=== PATIENT | male | born 1995 | race Hispanic/Latino ===

== ENCOUNTER 2018-03-03 19:25 | Emergency (ER) | payer MEDICAID, SELFPAY ==
[2018-03-03 20:11] LABS: Urine Bacteria <20 /HPF (NONE SEEN); Urine Culture Reflex Order REFLEXED
[2018-03-03 20:25] LABS: Absolute Lymphocytes (CBC) 1.4 K/uL (0.7-4.9); Absolute Monocytes 1.5 K/uL (0.1-1.3); Absolute Neutrophil 13.7 K/uL (1.8-8.0); Basophils % 0.5 % (0-1.3); Eosinophils % 0.8 % (0-4.4); Lymphocytes % 8.4 % (15.3-44.8); MCH 28.7 pg (27.0-35.0); MCV 84.3 fL (80-100); MPV 7.8 fL (7.6-11.3); Monocytes % 8.8 % (3.3-12.3); RBC Red Blood Cell Count 5.22 M/uL (4.33-5.43)
[2018-03-03 20:31] LABS: Urine Blood 2+ (NEG); Urine Glucose NEGATIVE (NEG); Urine Protein 2+ (NEG)
[2018-03-03 20:45] LABS: Albumin 3.8 g/dL (3.4-5.0); Bilirubin Direct 0.2 mg/dL (0-0.2); Bilirubin Total 0.5 mg/dL (0.2-1.0); Potassium 3.8 mmol/L (3.5-5.1); Protein, Total 7.9 g/dL (6.4-8.2)
--- NOTE | 2018-03-03 21:03 | RAD REPORT ---
EXAM DESCRIPTION: CT - Stone Protocol - 03/03/2018 8:21 pm CLINICAL HISTORY: Abdominal pain. Lower abdominal pain. Urinary frequency COMPARISON: None. TECHNIQUE: Computed axial tomography of the abdomen pelvis was obtained without oral or IV contrast. Lack of IV and oral contrast limits evaluation of solid organs, bowel, and vessels. Coronal reformat jordan images were obtained and reviewed. All CT scans are performed using dose optimization technique as appropriate and may include automated exposure control or mA/KV adjustment according to patient size. FINDINGS: A renal calculus is not seen. An ureteral calculus is not noted. A bladder calculus is not present. Fatty infiltration liver is present. Spleen, pancreas and adrenals appear grossly normal There is no evidence of diverticulitis. The spinal canal appears congenitally small. Small inguinal hernias containing fat are suspected IMPRESSION: Negative for a genitourinary calculus The spinal canal appears congenitally small. Further evaluation with MRI may be helpful
[2018-03-03] MEDS ORDERED: HYDROCODONE/APAP 7.5/325 MG TAB ONE (21:17)
[2018-03-03] MEDS ORDERED: NA CHLORIDE 0.9% 1,000 ML ONE ×2 (21:17→21:34)
[2018-03-03 23:50] LABS: Potassium 4.2 mmol/L (3.5-5.1)
--- NOTE | 2018-03-04 00:30 | ER ---
Nurse's Notes [facility] Name: Riki Amado Age: 22 yrs Sex: Male : 1995 Arrival Date: 03/03/2018 Time: 19:28 Bed 14 Private MD: Diagnosis: Essential (primary) hypertension Presentation: 03/03 19:33 Presenting complaint: Patient states: that he is having lower back pain and lower abd fc pain. Also having urinary frequency but no burning. Started 2 days ago. Positive for nausea and constipation but denies any vomiting or diarrhea. Last bowel movement 5 days ago. Went to [facility] on Friday and was told he had a pinched nerve in his back and gave him Tylenol #3, Gabapentin and Etodolac. Transition of care: patient was not received from another setting of care. Onset of symptoms was March 01, 2018. Risk Assessment: Do you want to hurt yourself or someone else? Patient reports no desire to harm self or others. Initial Sepsis Screen: Does the patient meet any 2 criteria? No. Patient's initial sepsis screen is negative. Does the patient have a suspected source of infection? No. Patient's initial sepsis screen is negative. Care prior to arrival: None. 19:33 Method Of Arrival: Ambulatory fc 19:33 Acuity: DION 3 fc Triage Assessment: 19:45 General: Appears in no apparent distress. Behavior is calm, cooperative. Pain: ak1 Complains of pain in lower back. EENT: No signs and/or symptoms were reported regarding the EENT system. Neuro: No deficits noted. Cardiovascular: No deficits noted. Respiratory: No deficits noted. GI: Reports constipation, nausea, Patient currently denies vomiting. : Reports urinary frequency, Denies burning with urination. Derm: No signs and/or symptoms reported regarding the dermatologic system. Musculoskeletal: Reports pain in lower back. Historical: - Allergies: 19:38 No Known Allergies; fc - Home Meds: 19:38 None [Active]; fc - PMHx: 19:38 Hypertension; fc - PSHx: 19:38 Appendectomy; fc - Immunization history:: Last tetanus immunization: unknown. - Social history:: Smoking status: Patient/guardian denies using tobacco, Patient uses alcohol, occasionally. Patient/guardian denies using street drugs. - Ebola Screening: : Patient negative for fever greater than or equal to 101.5 degrees Fahrenheit, and additional compatible Ebola Virus Disease symptoms Patient denies exposure to infectious person Patient denies travel to an Ebola-affected area in the 21 days before illness onset. Screenin:44 Abuse screen: Denies threats or abuse. Denies injuries from another. Nutritional ak1 screening: No deficits noted. Tuberculosis screening: No symptoms or risk factors identified. Fall Risk None identified. Assessment: 19:46 Reassessment: Patient appears in no apparent distress at this time. No changes from ak1 previously documented assessment. see triage assessment. 21:34 Reassessment: Patient appears in no apparent distress at this time. No changes from ak1 previously documented assessment. Patient and/or family updated on plan of care and expected duration. Pain level reassessed. Patient is alert, oriented x 3, equal unlabored respirations, skin warm/dry/pink. pt and family informed of need to wait for fluid boluses and repeat lab work. Vital Signs: 19:38 BP 158 / 108; Pulse 70; Resp 20; Temp 98.2(O); Pulse Ox 96% on R/A; Weight 147.42 kg fc (R); Height 6 ft. 3 in. (190.50 cm) (R); Pain 7/10; 21:06 BP 152 / 107; Pulse 72; Resp 18; Temp 98.2; Pulse Ox 98% on R/A; Pain 6/10; ak1 19:38 Body Mass Index 40.62 (147.42 kg, 190.50 cm) ED Course: 19:28 Patient arrived in ED. ds1 19:37 Triage completed. fc 19:41 Gino Jeffries PA is PHCP. cp 19:41 Trevor Qiu MD is Attending Physician. cp 19:44 Sara Turner, JAVIER is Primary Nurse. ak1 19:46 Arm band placed on Patient placed in an exam room, on a stretcher, Patient notified of ak1 wait time. 19:47 Patient has correct armband on for positive identification. Placed in gown. Bed in low ak1 position. Call light in reach. Side rails up X2. 20:14 Inserted saline lock: 20 gauge in right antecubital area, using aseptic technique. mt Blood collected. 20:[address] jg6 20:21 CT Stone Protocol In Process Unspecified. EDMS 20:21 CT completed. Patient tolerated procedure well. Patient moved back from CT. nj 20:59 No provider procedures requiring assistance completed. ak1 21:30 PHCP role handed off by Gino Jeffries PA snw 21:30 Tonya Culp FNP-C is PHCP. snw 22:31 Door closed. Warm blanket given. ak1 23:09 Chem 7 Sent. ak1 03/04 00:46 IV discontinued, intact, bleeding controlled, No redness/swelling at site. Pressure ak1 dressing applied. Administered Medications: 03/03 21:16 Drug: NS 0.9% 1000 ml Route: IV; Rate: 1 bolus; Site: right antecubital; ak1 22:31 Follow up: IV Status: Completed infusion ak1 21:16 Drug: [place] (7.5 mg-325 mg) 1 tabs Route: PO; ak1 21:25 Follow up: Response: No adverse reaction ak1 21:31 Drug: NS 0.9% 1000 ml Route: IV; Rate: 1 bolus; Site: right antecubital; ak1 23:09 Follow up: IV Status: Completed infusion ak1 03/04 00:39 Drug: Norvasc 5 mg Route: PO; ak1 00:40 Follow up: Response: No adverse reaction ak1 00:45 Drug: [place] (7.5 mg-325 mg) 1 tabs Route: PO; ak1 00:45 Follow up: Response: Medication administered at discharge. ak1 Outcome: 03/03 22:46 Condition: stable ak1 03/04 00:30 Discharge ordered by MD. snw 00:46 Discharged to home ambulatory, with family. ak1 00:46 Discharge instructions given to patient, family, Instructed on discharge instructions, follow up and referral plans. medication usage, Demonstrated understanding of instructions, follow-up care, medications, Prescriptions given X 1. 00:46 Patient left the ED. ak1 Signatures: Dispatcher [employer] EDMS Tonya Culp FNP-C FNP-Natalie Cuadra RN RN fc Sanford, Demi ds1 Sara Turner RN RN ak1 Gino Jeffries PA PA cp Jordan, Nathan nj Thompson, Moriah mt Garcia, Jessica jStephen
--- NOTE | 2018-03-04 00:31 | EDPHYS ---
Physician Documentation [facility] Name: Riki Amado Age: 22 yrs Sex: Male : 1995 Arrival Date: 03/03/2018 Time: 19:28 Bed 14 Private MD: ED Physician Trevor Qiu HPI: 03/03 19:58 This 22 yrs old Male presents to ER via Ambulatory with complaints of Kidney cp Pain, Urinary Retention. 19:58 The patient presents with abdominal pain in the lower abdomen. Onset: The cp symptoms/episode began/occurred 2 day(s) ago. Associated signs and symptoms: Pertinent positives: constipation, nausea, mid back pain, Pertinent negatives: blood in stools, diarrhea, dysuria, fever, vomiting. Historical: - Allergies: 19:38 No Known Allergies; fc - Home Meds: 19:38 None [Active]; fc - PMHx: 19:38 Hypertension; fc - PSHx: 19:38 Appendectomy; fc - Immunization history:: Last tetanus immunization: unknown. - Social history:: Smoking status: Patient/guardian denies using tobacco, Patient uses alcohol, occasionally. Patient/guardian denies using street drugs. - Ebola Screening: : Patient negative for fever greater than or equal to 101.5 degrees Fahrenheit, and additional compatible Ebola Virus Disease symptoms Patient denies exposure to infectious person Patient denies travel to an Ebola-affected area in the 21 days before illness onset. ROS: 20:00 Eyes: Negative for injury, pain, redness, and discharge. cp 20:00 Constitutional: Negative for body aches, chills, fever, poor PO intake. Exam: 20:08 Constitutional: The patient appears in no acute distress, alert, awake, non-toxic, well cp developed, well nourished. 20:08 Head/Face: Normocephalic, atraumatic. cp 20:08 Eyes: Periorbital structures: appear normal, Conjunctiva: normal, no exudate, no injection, Sclera: no appreciated abnormality, Lids and lashes: appear normal, bilaterally. 20:08 ENT: External ear(s): are unremarkable, Nose: is normal, Mouth: Lips: moist, Oral mucosa: moist, Posterior pharynx: is normal, airway is patent, no erythema, no exudate. 20:08 Chest/axilla: Inspection: normal, Palpation: is normal, no crepitus, no tenderness. 20:08 Cardiovascular: Rate: normal, Rhythm: regular, Edema: is not appreciated, JVD: is not appreciated. 20:08 Respiratory: the patient does not display signs of respiratory distress, Respirations: normal, no use of accessory muscles, no retractions, no splinting, no tachypnea, labored breathing, is not present, Breath sounds: are clear throughout, no decreased breath sounds, no stridor, no wheezing. 20:08 Abdomen/GI: Inspection: obese Bowel sounds: active, all quadrants, Palpation: soft, in all quadrants, mild abdominal tenderness, in the right lower quadrant and left lower quadrant, rebound tenderness, is not appreciated, involuntary guarding, is not appreciated. 20:08 Back: pain, that is mild, of the mid back area, ROM is normal, Straight leg raises: of both lower extremities does not illicit pain. 20:08 Skin: cellulitis, is not appreciated, no rash present. Vital Signs: 19:38 BP 158 / 108; Pulse 70; Resp 20; Temp 98.2(O); Pulse Ox 96% on R/A; Weight 147.42 kg fc (R); Height 6 ft. 3 in. (190.50 cm) (R); Pain 7/10; 21:06 BP 152 / 107; Pulse 72; Resp 18; Temp 98.2; Pulse Ox 98% on R/A; Pain 6/10; ak1 19:38 Body Mass Index 40.62 (147.42 kg, 190.50 cm) MDM: 19:41 Patient medically screened. 03/04 00:32 Data reviewed: vital signs, nurses notes. Data interpreted: Pulse oximetry: on room air snw is 98 %. Interpretation: normal. Counseling: I had a detailed discussion with the patient and/or guardian regarding: the historical points, exam findings, and any diagnostic results supporting the discharge/admit diagnosis, the presence of at least one elevated blood pressure reading (>120/80) during this emergency department visit, lab results, radiology results, the need for outpatient follow up, to return to the emergency department if symptoms worsen or persist or if there are any questions or concerns that arise at home. Special discussion: Based on the patient's Hx, exam, and Dx evaluation, there is no indication for emergent surgery or inpatient Tx. It is understood by the patient/guardian that if the Sx's persist or worsen they need to return immediately for re-evaluation. I have referred the patient to see his PCP for further evaluation of high blood pressure. Based on the history and exam findings, there is no indication for further emergent testing or inpatient evaluation. I discussed with the patient/guardian the need to see the primary care provider for further evaluation of the symptoms. 03/03 19:30 Order name: Urine Microscopic Only; Complete Time: 20:12 snw 03/03 20:12 Interpretation: Normal except: UWBC 5-10; URBC 5-10. cp 03/03 19:51 Order name: Urine Dipstick--Ancillary (enter results); Complete Time: 21:08 ms 03/03 21:08 Interpretation: Normal except: UBLD 2+; UPROT 2+. cp 03/03 19:57 Order name: Amylase, Serum; Complete Time: 21:08 cp 03/03 19:57 Order name: Basic Metabolic Panel; Complete Time: 21:08 cp 03/03 19:57 Order name: CBC with Diff; Complete Time: 21:08 cp 03/03 19:57 Order name: Creatinine for Radiology; Complete Time: 21:08 cp 03/03 19:57 Order name: Hepatic Function; Complete Time: 21:08 cp 03/03 19:57 Order name: Lipase; Complete Time: 21:08 cp 03/03 20:12 Order name: Urine Culture EDOH 03/03 20:13 Order name: CT Stone Protocol; Complete Time: 21:08 cp 03/03 22:40 Order name: Chem 7; Complete Time: 23:54 snw 03/03 19:30 Order name: Urine Dipstick-Ancillary (obtain specimen); Complete Time: 19:50 snw 03/03 19:57 Order name: IV Saline Lock; Complete Time: 20:14 cp 03/03 19:57 Order name: Labs collected and sent; Complete Time: 20:14 cp Administered Medications: 03/03 21:16 Drug: NS 0.9% 1000 ml Route: IV; Rate: 1 bolus; Site: right antecubital; ak1 22:31 Follow up: IV Status: Completed infusion ak1 21:16 Drug: [place] (7.5 mg-325 mg) 1 tabs Route: PO; ak1 21:25 Follow up: Response: No adverse reaction ak1 21:31 Drug: NS 0.9% 1000 ml Route: IV; Rate: 1 bolus; Site: right antecubital; ak1 23:09 Follow up: IV Status: Completed infusion ak1 03/04 00:39 Drug: Norvasc 5 mg Route: PO; ak1 00:40 Follow up: Response: No adverse reaction ak1 00:45 Drug: [place] (7.5 mg-325 mg) 1 tabs Route: PO; ak1 00:45 Follow up: Response: Medication administered at discharge. ak1 Disposition: 04:20 Co-signature as Attending Physician, Trevor Qiu MD. [email or web address] Disposition: 03/04/18 00:30 Discharged to Home. Impression: Essential (primary) hypertension. - Condition is Stable. - Discharge Instructions: Hypertension, How to Take Your Blood Pressure, Aeul-[id number], Chronic Kidney Disease, Adult, DASH Eating Plan, Managing Your Hypertension. - Prescriptions for Norvasc 5 mg Oral Tablet - take 1 tablet by ORAL route once daily; 20 tablet. - Work release form, Medication Reconciliation Form, Thank You Letter, Antibiotic Education, Prescription Opioid Use form. - Follow up: Private Physician; When: 2 - 3 days; Reason: Recheck today's complaints, Continuance of care, Re-evaluation by your physician. Follow up: Emergency Department; When: As needed; Reason: Worsening of condition. Signatures: Dispatcher [employer] EDMS Trevor Qiu MD MD pkTonya Nielson, JENS-C WARD SUPERVISOR-Lindseyw Natalie Abbott RN RN fc Krenek, Amber, RN RN ak1 Gino Jeffries PA PA cp Corrections: (The following items were deleted from the chart) 03/03 21:03/02 20:10 Constitutional: The patient appears in no acute distress, alert, awake, cp non-diaphoretic, non-toxic, well developed, well nourished, obese, cp 03/03 21:03/02 20:10 Head/Face: Normocephalic, atraumatic. cp cp 03/03 21:03/02 20:10 Eyes: Periorbital structures: appear normal, Conjunctiva: normal, no cp exudate, no injection, Sclera: no appreciated abnormality, Lids and lashes: appear normal, bilaterally, cp 03/03 21:03/02 20:10 ENT: External ear(s): are unremarkable, Nose: is normal, Mouth: Lips: cp moist, Oral mucosa: pink and intact, moist, Posterior pharynx: Airway: no evidence of obstruction, patent, Voice: is normal, cp 03/03 21:03/02 20:10 Neck: ROM/movement: is normal, is supple, without pain, no range of motions cp limitations, no nuchal rigidity, cp 03/03 21:03/02 20:10 Chest/axilla: Inspection: normal, Palpation: is normal, no crepitus, no cp tenderness, cp 03/03 21:03/02 20:10 Cardiovascular: Rate: normal, Rhythm: regular, cp cp 03/03 21:03/02 20:10 Respiratory: the patient does not display signs of respiratory distress, cp Respirations: normal, no use of accessory muscles, no retractions, no splinting, no tachypnea, labored breathing, is not present, Breath sounds: are clear throughout, no decreased breath sounds, no stridor, no wheezing, cp 03/03 21:03/02 20:10 Abdomen/GI: Inspection: obese Bowel sounds: active, all quadrants, cp Palpation: soft, in all quadrants, mild abdominal tenderness, in the right lower quadrant and left lower quadrant, rebound tenderness, is not appreciated, involuntary guarding, is not appreciated, cp 03/03 21:03/02 20:10 Back: pain, that is mild, of the mid back area, ROM is normal, Straight leg cp raises: of both lower extremities does not illicit pain, cp 03/03 21:03/02 20:10 Skin: cellulitis, is not appreciated, no rash present. cp cp 03/03 21:03/02 20:10 Neuro: Orientation: to person, place \T\ time. Mentation: lucid, able to cp follow commands, Motor: moves all fours, strength is normal, cp 03/04 00:46 00:30 03/04/2018 00:30 Discharged to Home. Impression: Essential (primary) ak1 hypertension. Condition is Stable. Forms are Medication Reconciliation Form, Thank You Letter, Antibiotic Education, Prescription Opioid Use. Follow up: Private Physician; When: 2 - 3 days; Reason: Recheck today's complaints, Continuance of care, Re-evaluation by your physician. Follow up: Emergency Department; When: As needed; Reason: Worsening of condition. marcelino
[2018-03-04] MEDS ORDERED: AMLODIPINE 5 MG TAB ONE (00:39)
[2018-03-04] MEDS ORDERED: HYDROCODONE/APAP 7.5/325 MG TAB ONE (00:48)
[2018-03-04 00:51] VITALS: TEMP 98.2
[2018-03-04 00:53] VITALS: BP 152/107; O2SAT 98
== END 2018-03-04 00:46 | disposition home or self-care (01) ==
LOC: ER 19:25
DX: I10 Essential (primary) hypertension (principal)
CPT/HCPCS: 36415; 74176; 76377; 80048; 80076; 81003; 81015; 82150; 83690; 85025; 87086; 87088; 96360; 96361; 99284; J7030

== ENCOUNTER 2018-06-16 23:34 | Emergency (ER) | payer SELFPAY ==
--- OUTSIDE RECORDS SUMMARY | 2018-06-16 23:36 | XMS REPORT ---
:1995 Author Organization [employer] Care Team Providers Name Role Phone Brunilda Laird Provider Role Unavailable Allergies, Adverse Reactions, Alerts Substance Reaction Event Type N.K.D.A. Info Not Available Non Drug Allergy Problems Problem Type Condition Code Onset Dates Condition Status Problem Stage 3 chronic kidney disease N18.3 Active Problem Essential hypertension I10 Active Assessment Essential hypertension I10 Active Assessment Stage 3 chronic kidney disease N18.3 Active Medications Medication Code Code Instructions Start End Status Dosage System Date Date Doxazosin [facility] [address]-07 2 MG Orally Active 1 tablet Mesylate twice a day Metoprolol [facility] 70268480892 25 MG Orally Active 1 tablet Tartrate every 12 hrs with food Gabapentin [facility] [address]-77 300 MG Orally Active 1 capsule Twice a day Melatonin [facility] 01285522742 3 MG Orally Active 1 tablet Once a day at bedtime as needed with food Tylenol # 3 NDC 0 300/30mg PO BID Active one tab PRN Amlodipine [facility] 74799076104 10 MG Orally Active 1 tablet Besylate Once a day Results No Known Results Summary Purpose [employer] Submission
[2018-06-17] MEDS ORDERED: NA CHLORIDE 0.9% 1,000 ML ONE (00:38)
[2018-06-17 01:00] LABS: Urine Blood NEGATIVE (NEG); Urine Glucose NEGATIVE (NEG); Urine Protein NEGATIVE (NEG); Urine Specific Gravity 1.015 (1.005-1.030)
[2018-06-17 01:00] LABS: Absolute Lymphocytes (CBC) 2.2 K/uL (0.7-4.9); Absolute Monocytes 0.7 K/uL (0.1-1.3); Absolute Neutrophil 6.4 K/uL (1.8-8.0); Basophils % 0.9 % (0-1.3); Eosinophils % 2.4 % (0-4.4); Hematocrit 45.5 % (39.6-49.0); Lymphocytes % 22.5 % (15.3-44.8); MPV 8.3 fL (7.6-11.3); Monocytes % 7.2 % (3.3-12.3); RBC Red Blood Cell Count 5.41 M/uL (4.33-5.43)
[2018-06-17 01:04] LABS: Urine RBC NONE SEEN /HPF (NONE SEEN)
[2018-06-17 01:05] LABS: Urine Bacteria <20 /HPF (NONE SEEN); Urine Culture Reflex Order NOT NEEDED
[2018-06-17 01:14] LABS: BUN Blood Urea Nitrogen 11 mg/dL (7-18); Bicarbonate 28 mmol/L (21-32); Glucose Level 85 mg/dL (74-106); Potassium 4.1 mmol/L (3.5-5.1); Sodium Level 137 mmol/L (136-145)
--- NOTE | 2018-06-17 02:17 | ER ---
Nurse's Notes [facility] Name: Riki Amado Age: 22 yrs Sex: Male : 1995 Arrival Date: 06/16/2018 Time: 23:38 Bed 19 Private MD: Diagnosis: Pain left lower back Presentation: 06/16 23:50 Presenting complaint: Patient states: L low back pain x 4 days. Reports the last time aa1 he felt this pain he was in renal failure from not taking his BP medication. Transition of care: patient was not received from another setting of care. Onset of symptoms was June 12, 2018. Risk Assessment: Do you want to hurt yourself or someone else? Patient reports no desire to harm self or others. Initial Sepsis Screen: Does the patient meet any 2 criteria? No. Patient's initial sepsis screen is negative. Does the patient have a suspected source of infection? No. Patient's initial sepsis screen is negative. Care prior to arrival: None. 23:50 Method Of Arrival: Ambulatory aa1 23:50 Acuity: DION 3 aa1 Triage Assessment: 23:53 General: Appears in no apparent distress. comfortable, Behavior is calm, cooperative, aa1 appropriate for age. Historical: - Allergies: 23:53 No Known Allergies; aa1 - Home Meds: 23:53 melatonin 3 mg Oral tab nightly [Active]; doxazosin 2 mg oral tab 1 tab twice a day aa1 [Active]; metoprolol tartrate 25 mg Oral tab 1 tab 2 times per day [Active]; - PMHx: 23:53 Hypertension; renal failure; aa1 - PSHx: 23:53 Appendectomy; aa1 - Immunization history:: Flu vaccine is not up to date. - Social history:: Smoking status: Patient/guardian denies using tobacco. - Ebola Screening: : No symptoms or risks identified at this time. Screenin/26 00:01 Abuse screen: Denies threats or abuse. Nutritional screening: No deficits noted. ea Tuberculosis screening: No symptoms or risk factors identified. Fall Risk None identified. Assessment: 00:00 General: Appears in no apparent distress. Behavior is calm, cooperative, appropriate ea for age. Pain: Complains of pain in left mid back and right mid back Pain does not radiate. Pain currently is 9 out of 10 on a pain scale. Neuro: Level of Consciousness is awake, alert, obeys commands, Oriented to person, place, time, situation. Cardiovascular: Patient's skin is warm and dry. Respiratory: Airway is patent Respiratory effort is even, unlabored, Respiratory pattern is regular, symmetrical, Breath sounds are clear. GI: No signs and/or symptoms were reported involving the gastrointestinal system. : No signs and/or symptoms were reported regarding the genitourinary system. Derm: Skin is pink, warm \T\ dry. 01:13 Reassessment: Patient and/or family updated on plan of care and expected duration. Pain ea level reassessed. Patient is alert, oriented x 3, equal unlabored respirations, skin warm/dry/pink. Returned from CT. 02:26 Reassessment: Patient and/or family updated on plan of care and expected duration. Pain ea level reassessed. Patient is alert, oriented x 3, equal unlabored respirations, skin warm/dry/pink. Discharge instruction given to patient, verbalized the understanding of instruction. Vital Signs: 06/16 23:53 BP 139 / 93; Pulse 72; Resp 16; Temp 98.1; Pulse Ox 97% on R/A; Weight 136.08 kg; aa1 Height 6 ft. 3 in. (190.50 cm); Pain 3/10; 06/17 01:09 BP 140 / 72; Pulse 70; Resp 18; Pulse Ox 99% ; ea 02:27 BP 132 / 68; Pulse 62; Resp 18; Temp 98; Pulse Ox 98% on R/A; ea 06/16 23:53 Body Mass Index 37.50 (136.08 kg, 190.50 cm) aa1 ED Course: 06/16 23:38 Patient arrived in ED. es 23:42 Trevor Qiu MD is Attending Physician. pkl 23:51 Triage completed. aa1 23:53 Arm band placed on right wrist. aa1 06/17 00:01 Patient has correct armband on for positive identification. Bed in low position. Call ea light in reach. Side rails up X 1. 00:10 Maddie Harris, JAVIER is Primary Nurse. ea 00:50 Inserted saline lock: 20 gauge in right antecubital area, using aseptic technique. ea Blood collected. 01:35 CT Stone Protocol In Process Unspecified. EDMS 02:28 No provider procedures requiring assistance completed. IV discontinued, intact, ea bleeding controlled, No redness/swelling at site. Pressure dressing applied. Administered Medications: 00:54 Drug: NS 0.9% 1000 ml Route: IV; Rate: 125 ml/hr; Site: right antecubital; ea 02:29 Follow up: Response: No adverse reaction; IV Status: Completed infusion; IV Intake: ea 300ml Intake: 02: IV: 300ml; Total: 300ml. lynne Outcome: 02:17 Discharge ordered by MD. austin 02: Discharged to home ambulatory, with family. ea 02:28 Condition: improved 02:28 Discharge instructions given to patient, Instructed on discharge instructions, follow up and referral plans. Demonstrated understanding of instructions, follow-up care. 02:29 Patient left the ED. ea Signatures: Dispatcher [employer] An Morales, RN RN aa1 Trevor Qiu MD MD pkl Salyer, Edna es Antunez, Elena, RN RN ea
--- NOTE | 2018-06-17 02:18 | EDPHYS ---
Physician Documentation [facility] Name: Riki Amado Age: 22 yrs Sex: Male : 1995 Arrival Date: 06/16/2018 Time: 23:38 Bed 19 Private MD: ED Physician Trevor Qiu HPI: 06/17 00:07 This 22 yrs old Male presents to ER via Ambulatory with complaints of KIDNEY pkl PAIN. 00:07 The patient presents with pain that is acute. The symptoms are located in the left pkl lower back. Onset: The symptoms/episode began/occurred 4 day(s) ago. Patient said pain similar to the pain he had 3 months ago when he had renal failure.. Historical: - Allergies: 06/16 23:53 No Known Allergies; aa1 - Home Meds: 23:53 melatonin 3 mg Oral tab nightly [Active]; doxazosin 2 mg oral tab 1 tab twice a day aa1 [Active]; metoprolol tartrate 25 mg Oral tab 1 tab 2 times per day [Active]; - PMHx: 23:53 Hypertension; renal failure; aa1 - PSHx: 23:53 Appendectomy; aa1 - Immunization history:: Flu vaccine is not up to date. - Social history:: Smoking status: Patient/guardian denies using tobacco. - Ebola Screening: : No symptoms or risks identified at this time. ROS: 06/17 00:07 Eyes: Negative for injury, pain, redness, and discharge, ENT: Negative for injury, pkl pain, and discharge, Neck: Negative for injury, pain, and swelling, Cardiovascular: Negative for chest pain, palpitations, and edema, Respiratory: Negative for shortness of breath, cough, wheezing, and pleuritic chest pain, Abdomen/GI: Negative for abdominal pain, nausea, vomiting, diarrhea, and constipation. Back: Positive for pain at rest, of the left lower back. Exam: 00:07 Head/Face: Normocephalic, atraumatic. Eyes: Pupils equal round and reactive to light, pkl extra-ocular motions intact. Lids and lashes normal. Conjunctiva and sclera are non-icteric and not injected. Cornea within normal limits. Periorbital areas with no swelling, redness, or edema. ENT: Nares patent. No nasal discharge, no septal abnormalities noted. Tympanic membranes are normal and external auditory canals are clear. Oropharynx with no redness, swelling, or masses, exudates, or evidence of obstruction, uvula midline. Mucous membranes moist. Neck: Trachea midline, no thyromegaly or masses palpated, and no cervical lymphadenopathy. Supple, full range of motion without nuchal rigidity, or vertebral point tenderness. No Meningismus. Chest/axilla: Normal chest wall appearance and motion. Nontender with no deformity. No lesions are appreciated. Cardiovascular: Regular rate and rhythm with a normal S1 and S2. No gallops, murmurs, or rubs. Normal PMI, no JVD. No pulse deficits. Respiratory: Lungs have equal breath sounds bilaterally, clear to auscultation and percussion. No rales, rhonchi or wheezes noted. No increased work of breathing, no retractions or nasal flaring. Abdomen/GI: Soft, non-tender, with normal bowel sounds. No distension or tympany. No guarding or rebound. No evidence of tenderness throughout. 00:07 Back: pain, that is mild, of the left lower back. 00:07 : Exam negative for acute changes. 00:07 Musculoskeletal/extremity: Exam is negative for acute changes. 00:07 Skin: Exam negative for rash. 00:07 Neuro: Orientation: is normal, Mentation: is normal, Cranial nerves: grossly normal, Motor: is normal. Vital Signs: 06/16 23:53 BP 139 / 93; Pulse 72; Resp 16; Temp 98.1; Pulse Ox 97% on R/A; Weight 136.08 kg; aa1 Height 6 ft. 3 in. (190.50 cm); Pain 3/10; 06/17 01:09 BP 140 / 72; Pulse 70; Resp 18; Pulse Ox 99% ; ea 02:27 BP 132 / 68; Pulse 62; Resp 18; Temp 98; Pulse Ox 98% on R/A; ea 06/16 23:53 Body Mass Index 37.50 (136.08 kg, 190.50 cm) aa1 MDM: 06/16 23:42 Patient medically screened. pkl 06/17 02:16 Data reviewed: vital signs, nurses notes, lab test result(s), radiologic studies, CT pkl scan. 06/17 00:04 Order name: CBC with Diff; Complete Time: 01:08 pkl 06/17 00:04 Order name: Chem 7; Complete Time: 01:19 pkl 06/17 00:55 Order name: Urine Dipstick--Ancillary (enter results); Complete Time: 01:08 ms 06/17 00:56 Order name: CT Stone Protocol pkl 06/17 00:59 Order name: Urine Microscopic Only; Complete Time: 01:08 EDMS Administered Medications: 00:54 Drug: NS 0.9% 1000 ml Route: IV; Rate: 125 ml/hr; Site: right antecubital; ea 02:29 Follow up: Response: No adverse reaction; IV Status: Completed infusion; IV Intake: ea 300ml Disposition: 06/17/18 02:17 Discharged to Home. Impression: Pain left lower back. - Condition is Stable. - Medication Reconciliation Form, Thank You Letter, Antibiotic Education, Prescription Opioid Use form. - Follow up: Private Physician; When: 2 - 3 days; Reason: Re-evaluation by your physician. - Problem is new. - Symptoms have improved. Signatures: Dispatcher [employer] [facility] An Bach RN RN aa1 Trevor Qiu MD MD pkl Maddie Harris RN RN ea Corrections: (The following items were deleted from the chart) 00:59 00:05 URINALYSIS+U.LAB.BRZ ordered. [facility] 02:29 02:17 06/17/2018 02:17 Discharged to Home. Impression: Pain left lower back. Condition ea is Stable. Forms are Medication Reconciliation Form, Thank You Letter, Antibiotic Education, Prescription Opioid Use. Follow up: Private Physician; When: 2 - 3 days; Reason: Re-evaluation by your physician. Problem is new. Symptoms have improved. pkl
[2018-06-17 03:29] VITALS: BP 132/68; TEMP 98; O2SAT 98
--- NOTE | 2018-06-17 08:21 | RAD REPORT ---
EXAM DESCRIPTION: CT - Stone Protocol - 06/17/2018 6:01 am CLINICAL HISTORY: Left-sided abdomen, back and flank pain. A preliminary report was provided at the time of the study and reviewed prior to final report. COMPARISON: CT study March 03, 2018 TECHNIQUE: Axial 5 mm thick images were obtained without oral or IV contrast. The [id number] span s the entirety of the system partially obscuring uppermost abdomen and lung bases. All CT scans are performed using dose optimization technique as appropriate and may include automated exposure control or mA/KV adjustment according to patient size. FINDINGS: No hydronephrosis is present and no obstructing ureteral calculi. No suspicious renal mass es. Isodense masses and pyelonephritis are not excluded on a stone protocol CT scan. No urinary bladd er suspicious finding. No significant adrenal finding. Imaged portions of the liver, spleen and pancreas show no suspicious findings on non-contrast imaging . No gallbladder or biliary tree abnormality identified. No suspicious bowel findings. No hernia, mass or bulky lymphadenopathy noted. No free air, pneumatosis or free fluid. No edema or s tranding in the peritoneal or retroperitoneal spaces. Minimal prominence of a subcutaneous fatty tiss ues inferior to the umbilicus. This may be baseline for the patient. A similar pattern was seen in Se ptember. No acute bone finding. 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 Degenerative endplate changes are present at T10-11 and T12-L1 similar to the recent comparison. IMPRESSION: No acute findings involving the abdomen or pelvis. Disc and endplate changes at T10-11 and T12-L1 are advanced for the patient's age. This is similar to 2018. Some of this may be congenital. Patient also has central spinal canal narrowing as a congenita l process most pronounced at L3. Concerns for bone or disc etiology for patient pain pattern can be further addressed with outpatient MR imaging. Isodense masses and pyelonephritis are not excluded on stone protocol technique.
== END 2018-06-17 02:29 | disposition home or self-care (01) ==
LOC: ER 23:34
DX: M54.5 Low back pain (principal); N19 Unspecified kidney failure; I10 Essential (primary) hypertension
CPT/HCPCS: 36415; 74176; 76377; 80048; 81003; 81015; 85025; 96360; 96361; 99284; J7030

== ENCOUNTER 2018-12-14 23:44 | Emergency (ER) | payer OTHER ==
--- OUTSIDE RECORDS SUMMARY | 2018-12-14 23:46 | XMS REPORT ---
[...] End Status Dosage System Date Date Doxazosin [facility] [address]-88 2 MG Orally Active 1 tablet Mesylate twice a day Metoprolol [facility] 45349196601 25 MG Orally Active 1 tablet Tartrate every 12 hrs with food Gabapentin [facility] [address]-39 300 MG Orally Active 1 capsule Twice a day Melatonin [facility] 63436109605 3 MG Orally Active 1 tablet Once a day at bedtime as needed with food Tylenol # 3 NDC 0 300/30mg PO BID Active one tab PRN Amlodipine [facility] 15959661065 10 MG Orally Active 1 tablet Besylate Once a day Results No Known Results Summary Purpose eClinicalWorks Submission
--- OUTSIDE RECORDS SUMMARY | 2018-12-14 23:46 | XMS REPORT ---
:1995 Author Organization [facility] Address [address] [place] [address] Care Team Providers Name Role Phone Unavailable Unavailable Unavailable Problems This patient has no known problems. Allergies, Adverse Reactions, Alerts This patient has no known allergies or adverse reactions. Medications This patient has no known medications.
[2018-12-15] MEDS ORDERED: NA CHLORIDE 0.9% 1,000 ML ONE (00:53)
[2018-12-15 01:10] LABS: Absolute Lymphocytes (CBC) 2.9 K/uL (0.7-4.9); Basophils % 0.9 % (0-1.3); Eosinophils % 3.9 % (0-4.4); Hematocrit 45.4 % (39.6-49.0); Lymphocytes % 29.9 % (15.3-44.8); Monocytes % 7.9 % (3.3-12.3); RBC Red Blood Cell Count 5.28 M/uL (4.33-5.43)
[2018-12-15 01:11] LABS: Protime INR 1.05
[2018-12-15 01:21] LABS: Urine Blood NEGATIVE (NEG); Urine Glucose NEGATIVE (NEG); Urine Protein NEGATIVE (NEG); Urine pH 6.5 (5.0-7.0)
[2018-12-15 01:24] LABS: ALT/SGPT 66 U/L (12-78); AST/SGOT 25 U/L (15-37); Alkaline Phosphatase 89 U/L (45-117); BUN Blood Urea Nitrogen 18 mg/dL (7-18); Bicarbonate 25 mmol/L (21-32); Bilirubin Direct < 0.1 mg/dL (0-0.2); Bilirubin Total 0.3 mg/dL (0.2-1.0); Glucose Level 85 mg/dL (74-106); Magnesium 2.3 mg/dL (1.8-2.4); Potassium 3.9 mmol/L (3.5-5.1); Protein, Total 7.9 g/dL (6.4-8.2); Sodium Level 138 mmol/L (136-145); Troponin (Emerg Dept Use Only) < 0.02 ng/mL (0.0-0.045)
[2018-12-15 01:26] LABS: NT PRO-BNP < 5 pg/mL (<125)
--- NOTE | 2018-12-15 01:30 | EDPHYS ---
Physician Documentation [facility] Name: Riki Amado Age: 22 yrs Sex: Male : 1995 Arrival Date: 12/14/2018 Time: 23:46 Bed 27 Private MD: ED Physician Gino Horvath HPI: 12/15 00:34 This 22 yrs old Male presents to ER via Ambulatory with complaints of Rib pain.[facility] 00:34 The patient or guardian reports chest pain that is located primarily in the anterior veronique chest wall, left. The pain does not radiate. Associated signs and symptoms: The patient has no apparent associated signs or symptoms. The chest pain is described as aching. Duration: The patient or guardian reports a single episode, that is still ongoing. Modifying factors: The symptoms are alleviated by nothing. the symptoms are aggravated by nothing. Severity of pain: At its worst the pain was mild moderate in the emergency department the pain is unchanged. The patient has experienced a previous episode. Historical: - Allergies: 00:04 No Known Allergies; bb - Home Meds: 00:04 metoprolol tartrate 25 mg Oral tab 1 tab 2 times per day [Active]; melatonin 3 mg Oral bb tab nightly [Active]; doxazosin 2 mg Oral tab 1 tab twice a day [Active]; - PMHx: 00:04 Hypertension; RENAL FAILURE; bb - PSHx: 00:04 Appendectomy; bb - Immunization history:: Adult Immunizations up to date. - Social history:: Smoking status: Patient uses tobacco products, chewing tobacco. - Ebola Screening: : No symptoms or risks identified at this time. - Family history:: not pertinent. ROS: 00:34 Constitutional: Negative for fever, chills, and weight loss, Eyes: Negative for injury, veronique pain, redness, and discharge, ENT: Negative for injury, pain, and discharge, Neck: Negative for injury, pain, and swelling, Cardiovascular: Negative for chest pain, palpitations, and edema, Respiratory: Negative for shortness of breath, cough, wheezing, and pleuritic chest pain, Abdomen/GI: Negative for abdominal pain, nausea, vomiting, diarrhea, and constipation, Back: Negative for injury and pain, : Negative for injury, bleeding, discharge, and swelling, MS/Extremity: Negative for injury and deformity, Skin: Negative for injury, rash, and discoloration, Neuro: Negative for headache, weakness, numbness, tingling, and seizure, Psych: Negative for depression, anxiety, suicide ideation, homicidal ideation, and hallucinations, Allergy/Immunology: Negative for hives, rash, and allergies, Endocrine: Negative for neck swelling, polydipsia, polyuria, polyphagia, and marked weight changes. Exam: 00:34 Constitutional: This is a well developed, well nourished patient who is awake, alert, veronique and in no acute distress. Head/Face: Normocephalic, atraumatic. Eyes: Pupils equal round and reactive to light, extra-ocular motions intact. Lids and lashes normal. Conjunctiva and sclera are non-icteric and not injected. Cornea within normal limits. Periorbital areas with no swelling, redness, or edema. ENT: Nares patent. No nasal discharge, no septal abnormalities noted. Tympanic membranes are normal and external auditory canals are clear. Oropharynx with no redness, swelling, or masses, exudates, or evidence of obstruction, uvula midline. Mucous membranes moist. Neck: Trachea midline, no thyromegaly or masses palpated, and no cervical lymphadenopathy. Supple, full range of motion without nuchal rigidity, or vertebral point tenderness. No Meningismus. Chest/axilla: Normal chest wall appearance and motion. Nontender with no deformity. No lesions are appreciated. Cardiovascular: Regular rate and rhythm with a normal S1 and S2. No gallops, murmurs, or rubs. Normal PMI, no JVD. No pulse deficits. Respiratory: Lungs have equal breath sounds bilaterally, clear to auscultation and percussion. No rales, rhonchi or wheezes noted. No increased work of breathing, no retractions or nasal flaring. Abdomen/GI: Soft, non-tender, with normal bowel sounds. No distension or tympany. No guarding or rebound. No evidence of tenderness throughout. Back: No spinal tenderness. No costovertebral tenderness. Full range of motion. Skin: Warm, dry with normal turgor. Normal color with no rashes, no lesions, and no evidence of cellulitis. MS/ Extremity: Pulses equal, no cyanosis. Neurovascular intact. Full, normal range of motion. Neuro: Awake and alert, GCS 15, oriented to person, place, time, and situation. Cranial nerves II-XII grossly intact. Motor strength 5/5 in all extremities. Sensory grossly intact. Cerebellar exam normal. Normal gait. Psych: Awake, alert, with orientation to person, place and time. Behavior, mood, and affect are within normal limits. 00:36 Musculoskeletal/extremity: DVT Exam: No signs of deep vein thrombosis. no pain, no veronique swelling, no tenderness, negative Homans' sign noted on exam, no appreciated bluish discoloration, no erythema, no increased warmth. Vital Signs: 00:04 BP 149 / 90; Pulse 67; Resp 16 S; Temp 98.8(O); Pulse Ox 97% on R/A; Weight 144.24 kg bb (R); Height 6 ft. 4 in. (193.04 cm) (R); Pain 8/10; 01:59 BP 134 / 65; Pulse 67; Resp 16; Temp 98.5; Pulse Ox 98% on R/A; Pain 0/10; aa1 00:04 Body Mass Index 38.71 (144.24 kg, 193.04 cm) bb MDM: 00:02 Patient medically screened. [facility] 00:36 Data reviewed: vital signs, nurses notes, lab test result(s), EKG, radiologic studies, [facility] plain films. 12/15 00:34 Order name: Basic Metabolic Panel [facility] 12/15 00:34 Order name: CBC with Diff; Complete Time: : [facility] 12/15 00:34 Order name: LFT's; Complete Time: : [facility] 12/15 00:34 Order name: Magnesium; Complete Time: : [facility] 12/15 00:34 Order name: NT PRO-BNP; Complete Time: : [facility] 12/15 00:34 Order name: PT-INR; Complete Time: : [facility] 12/15 00:04 Order name: Chest Pa And Lat (2 Views) XRAY [facility] 12/15 00:34 Order name: Troponin (emerg Dept Use Only); Complete Time: : [facility] 12/15 00:34 Order name: Urine Culture [facility] 12/15 00:46 Order name: Basic Metabolic Panel; Complete Time: 01: EDMS 12/15 01:03 Order name: Urine Dipstick--Ancillary (enter results); Complete Time: : ar5 12/15 00:34 Order name: EKG; Complete Time: 00:47 [facility] 12/15 00:34 Order name: Cardiac monitoring; Complete Time: : [facility] 12/16 99:34 Order name: EKG - Nurse/Tech; Complete Time: 01: [facility] 12/15 00:34 Order name: IV Saline Lock; Complete Time: : [facility] 12/15 00:34 Order name: Labs collected and sent; Complete Time: : [facility] 12/16 99:34 Order name: O2 Per Protocol; Complete Time: : [facility] 12/16 99:34 Order name: O2 Sat Monitoring; Complete Time: : [facility] 12/15 00:34 Order name: Urine Dipstick-Ancillary (obtain specimen); Complete Time: : [facility] Administered Medications: 00:33 CANCELLED (Duplicate Order): Motrin 600 mg PO once [facility] 01:02 Drug: NS 0.9% 500 ml Route: IV; Rate: bolus; Site: right antecubital; mg2 01:59 Follow up: IV Status: Completed infusion; IV Intake: 500ml aa1 01:33 Not Given (Physician Discretion): NS 0.9% 1000 ml IV at 125 ml/hr continuous aa1 Disposition: 12/15/18 01:29 Discharged to Home. Impression: Strain of muscle and tendon of front wall of thorax, Essential (primary) hypertension. - Condition is Stable. - Discharge Instructions: Hypertension, Hypertension, [id number], How to Take Your Blood Pressure, Qiqv-[id number], Managing Your Hypertension. - Prescriptions for Tylenol- Codeine #3 300-30 mg Oral Tablet - take 2 tablets by ORAL route every 6 hours As needed; 24 tablet. - Medication Reconciliation Form, Thank You Letter, Antibiotic Education, Prescription Opioid Use form. - Follow up: Private Physician; When: 2 - 3 days; Reason: Recheck today's complaints, Continuance of care, Re-evaluation by your physician. Follow up: Gaurang Cabral; When: 2 - 3 days; Reason: Recheck today's complaints, Continuance of care, Re-evaluation by your physician. - Problem is new. - Symptoms have improved. Signatures: Dispatcher [employer] EDAn Gale RN RN aa1 Gino Horvath MD MD cha Ballard, Brenda RN RN bb Lucio Dubon, JAVIER RN mg2 Corrections: (The following items were deleted from the chart) 00:33 00:04 Motrin 600 mg PO once ordered. veronique piper 02:03 01:29 12/15/2018 01:29 Discharged to Home. Impression: Strain of muscle and tendon of aa1 front wall of thorax; Essential (primary) hypertension. Condition is Stable. Discharge Instructions: Hypertension, Hypertension, Pywu-oh-Yeed, How to Take Your Blood Pressure, [id number], Managing Your Hypertension. Prescriptions for Tylenol-Codeine #3 300-30 mg Oral Tablet - take 2 tablets by ORAL route every 6 hours As needed; 24 tablet. and Forms are Medication Reconciliation Form, Thank You Letter, Antibiotic Education, Prescription Opioid Use. Follow up: Private Physician; When: 2 - 3 days; Reason: Recheck today's complaints, Continuance of care, Re-evaluation by your physician. Follow up: Gaurang Cabral; When: 2 - 3 days; Reason: Recheck today's complaints, Continuance of care, Re-evaluation by your physician. Problem is new. Symptoms have improved. veronique
--- NOTE | 2018-12-15 01:30 | ER ---
Nurse's Notes [facility] Name: Riki Amado Age: 22 yrs Sex: Male : 1995 Arrival Date: 12/14/2018 Time: 23:46 Bed 27 Private MD: Diagnosis: Strain of muscle and tendon of front wall of thorax;Essential (primary) hypertension Presentation: 12/15 00:00 Presenting complaint: Patient states: he is having left sided rib pain since bb he has had kidney failure in the past for uncontrolled hypertension after high school he was taking blood pressure medications but has not taken them for the last few months but did start taking them the last couple of days. Also he felt constipated but then had an episode of diarrhea. Transition of care: patient was not received from another setting of care. Onset of symptoms was December 10, 2018. Risk Assessment: Do you want to hurt yourself or someone else? Patient reports no desire to harm self or others. Initial Sepsis Screen: Does the patient meet any 2 criteria? No. Patient's initial sepsis screen is negative. Does the patient have a suspected source of infection? No. Patient's initial sepsis screen is negative. Care prior to arrival: None. 00:00 Method Of Arrival: Ambulatory bb 00:00 Acuity: DION 3 bb Historical: - Allergies: 00:04 No Known Allergies; bb - Home Meds: 00:04 metoprolol tartrate 25 mg Oral tab 1 tab 2 times per day [Active]; melatonin 3 mg Oral bb tab nightly [Active]; doxazosin 2 mg Oral tab 1 tab twice a day [Active]; - PMHx: 00:04 Hypertension; RENAL FAILURE; bb - PSHx: 00:04 Appendectomy; bb - Immunization history:: Adult Immunizations up to date. - Social history:: Smoking status: Patient uses tobacco products, chewing tobacco. - Ebola Screening: : No symptoms or risks identified at this time. - Family history:: not pertinent. Screenin:03 Abuse screen: Denies threats or abuse. Denies injuries from another. Nutritional mg2 screening: No deficits noted. Tuberculosis screening: No symptoms or risk factors identified. Fall Risk IV access (20 points). Assessment: 01:02 General: Appears in no apparent distress. comfortable, Behavior is calm, cooperative. mg2 Pain: Complains of pain in rib in the left side Pain does not radiate. Pain currently is 4 out of 10 on a pain scale. Quality of pain is described as aching, Pain began gradually, Is intermittent. Neuro: Level of Consciousness is awake, alert, obeys commands, Oriented to person, place, time, situation. Cardiovascular: Capillary refill < 3 seconds Patient's skin is warm and dry. Respiratory: Airway is patent Respiratory effort is even, unlabored, Respiratory pattern is regular, symmetrical. GI: No signs and/or symptoms were reported involving the gastrointestinal system. : No signs and/or symptoms were reported regarding the genitourinary system. EENT: No deficits noted. Derm: Skin is intact, is healthy with good turgor, Skin is pink, warm \T\ dry. normal. Musculoskeletal: Circulation, motion, and sensation intact. Capillary refill < 3 seconds. 01:59 Reassessment: Patient appears in no apparent distress at this time. Patient is alert, aa1 oriented x 3, equal unlabored respirations, skin warm/dry/pink. Discussed d/c \T\ f/u instructions with pt \T\ family; denies questions or concerns at this time Patient denies pain at this time. Patient states feeling better. Vital Signs: 00:04 BP 149 / 90; Pulse 67; Resp 16 S; Temp 98.8(O); Pulse Ox 97% on R/A; Weight 144.24 kg bb (R); Height 6 ft. 4 in. (193.04 cm) (R); Pain 8/10; 01:59 BP 134 / 65; Pulse 67; Resp 16; Temp 98.5; Pulse Ox 98% on R/A; Pain 0/10; aa1 00:04 Body Mass Index 38.71 (144.24 kg, 193.04 cm) bb ED Course: 12/14 23:46 Patient arrived in ED. es 12/15 00:02 Gino Horvath MD is Attending Physician. veronique 00:04 Triage completed. bb 00:04 Arm band placed on Patient placed in an exam room, on a stretcher, on pulse oximetry. bb Family accompanied patient. 00:35 Lucio Dubon, JAVIER is Primary Nurse. mg2 01:03 No provider procedures requiring assistance completed. Inserted saline lock: 20 gauge mg2 in right antecubital area, using aseptic technique. Blood collected. 01:04 Patient has correct armband on for positive identification. mg2 01:09 X-ray completed. Patient tolerated procedure well. kw 01:11 Chest Pa And Lat (2 Views) XRAY In Process Unspecified. EDMS 01:29 Gaurang Cabral DO is Referral Physician. veronique 01:59 IV discontinued, intact, bleeding controlled, No redness/swelling at site. Pressure aa1 dressing applied. Administered Medications: 00:33 CANCELLED (Duplicate Order): Motrin 600 mg PO once veronique 01:02 Drug: NS 0.9% 500 ml Route: IV; Rate: bolus; Site: right antecubital; mg2 01:59 Follow up: IV Status: Completed infusion; IV Intake: 500ml aa1 01:33 Not Given (Physician Discretion): NS 0.9% 1000 ml IV at 125 ml/hr continuous aa1 Intake: 01:59 IV: 500ml; Total: 500ml. aa1 Outcome: 01:29 Discharge ordered by MD. veronique 01:59 Discharged to home ambulatory, with family. aa1 01:59 Condition: good 01:59 Discharge instructions given to patient, family, Instructed on discharge instructions, follow up and referral plans. medication usage, Demonstrated understanding of instructions, follow-up care, medications, Prescriptions given X 1. 02:03 Patient left the ED. aa1 Signatures: Dispatcher [employer] EDNH An Cortez, RN RN aa1 Gino Horvath MD MD cha Salyer, Edna es Ballard, Brenda, RN RN Kelly Cooper Michele, RN RN mg2
[2018-12-15 02:40] VITALS: BP 134/65; TEMP 98.5; O2SAT 98
--- NOTE | 2018-12-15 09:11 | RAD REPORT ---
EXAM DESCRIPTION: RAD - Chest Pa And Lat (2 Views) - 12/15/2018 1:11 am CLINICAL HISTORY: Left-sided chest and rib pain COMPARISON: February 2018 TECHNIQUE: PA and lateral views of the chest were obtained. FINDINGS: The lungs are clear. Heart size is normal and central vasculature is within normal limit s. No pleural effusion or pneumothorax seen. No acute bony finding noted. No aortic abnormality. IMPRESSION: No acute cardiopulmonary process.
--- NOTE | 2018-12-15 14:49 | EKG ---
Test Date: 2018-12-15 Test Time: 01:26:51 Mirror Silverer: CONRADO MEASUREMENT RESULTS: Intervals: Rate: 55 GA: 178 QRSD: 86 QT: 408 QTc: 390 [place]: P: 18 GA: 178 QRS: 6 T: -10 INTERPRETIVE STATEMENTS: Sinus bradycardia Otherwise normal ECG Compared to ECG 03/05/2018 02:48:53 Sinus rhythm no longer present Left ventricular hypertrophy no longer present Electronically Signed On 12-15-18 14:47:20 CDT by Herbie Lopez
== END 2018-12-15 02:03 | disposition home or self-care (01) ==
LOC: ER 23:44
DX: S29.011A Strain of muscle and tendon of front wall of thorax, initial encounter (principal); I10 Essential (primary) hypertension; N19 Unspecified kidney failure; Z72.0 Tobacco use
CPT/HCPCS: 36415; 71046; 80048; 80076; 81003; 83735; 83880; 84484; 85025; 85610; 87086; 87088; 93005; 96360; 99284; J7030

== ENCOUNTER 2021-04-23 21:00 | Emergency (ER) | payer OTHER, SELFPAY ==
[2021-04-23 22:49] LABS: Urine Blood Negative (Negative); Urine Glucose Negative (Negative); Urine Protein Negative (Negative); Urine Specific Gravity 1.025 (1.005-1.030); Urine pH 6.5 (5.0-7.0)
[2021-04-23 22:53] LABS: Absolute Lymphocytes (CBC) 2.7 K/uL (0.7-4.9); Hematocrit 48.3 % (39.6-49.0); Lymphocytes % 20.6 % (15.3-44.8); MPV 8.5 fL (7.6-11.3); RBC Red Blood Cell Count 5.73 M/uL (4.33-5.43)
[2021-04-23 23:12] LABS: ALT/SGPT 83 U/L (12-78); AST/SGOT 25 U/L (15-37); Albumin 4.1 g/dL (3.4-5.0); Alkaline Phosphatase 101 U/L (45-117); BUN Blood Urea Nitrogen 10 mg/dL (7-18); Bicarbonate 29 mmol/L (21-32); Bilirubin Direct 0.2 mg/dL (0-0.2); Bilirubin Total 0.5 mg/dL (0.2-1.0); Glucose Level 84 mg/dL (74-106); Lipase 98 U/L (73-393); Potassium 3.7 mmol/L (3.5-5.1); Protein, Total 8.4 g/dL (6.4-8.2); Sodium Level 139 mmol/L (136-145)
--- NOTE | 2021-04-23 23:20 | ER ---
Nurse's Notes [facility] Name: Riki Amado Age: 25 yrs Sex: Male : 1995 Arrival Date: 04/23/2021 Time: 21:05 Bed 13 Private MD: Diagnosis: Diarrhea, unspecified Presentation: 04/23 21:44 Chief complaint: Patient states: abdominal pain for 1 week, also reports back em stiffness, denies N/V, reports diarrhea. Coronavirus screen: Vaccine status: Patient reports being unvaccinated. Ebola Screen: Patient negative for fever greater than or equal to 101.5 degrees Fahrenheit, and additional compatible Ebola Virus Disease symptoms Patient denies exposure to infectious person. Patient denies travel to an Ebola-affected area in the 21 days before illness onset. No symptoms or risks identified at this time. Initial Sepsis Screen: Does the patient meet any 2 criteria? No. Patient's initial sepsis screen is negative. Does the patient have a suspected source of infection? No. Patient's initial sepsis screen is negative. Risk Assessment: Do you want to hurt yourself or someone else? Patient reports no desire to harm self or others. 21:44 Method Of Arrival: Ambulatory em 21:44 Acuity: DION 3 em 21:55 Onset of symptoms was April 22, 2021. dc2 Triage Assessment: 21:50 General: Appears in no apparent distress. comfortable, obese, well groomed. General: dc2 Behavior is calm, cooperative. 21:55 Pain: Complains of pain in right upper quadrant, reports when he moves or walks, pain dc2 radiates all over the stomach. Historical: - Allergies: 21:46 No Known Allergies; em - PMHx: 23:20 Hypertension; RENAL FAILURE; dc2 - Immunization history:: Client reports having NOT received the Covid vaccine. - Social history:: Smoking status: Patient reports use of chewing tobacco. Patient uses Patient/guardian denies using alcohol, street drugs, The patient lives with family. - Family history:: not pertinent. Screenin:50 Abuse screen: Denies threats or abuse. Denies injuries from another. Nutritional dc2 screening: No deficits noted. Tuberculosis screening: No symptoms or risk factors identified. Never had TB. Fall Risk None identified. No fall in past 12 months (0 pts). Secondary diagnosis (15 points) No IV (0 pts). Ambulatory Aid- None/Bed Rest/Nurse Assist (0 pts). Gait- Normal/Bed Rest/Wheelchair (0 pts) Mental Status- Oriented to own ability (0 pts). Total Miller Fall Scale indicates No Risk (0-24 pts). Assessment: 21:53 Reassessment: Patient appears in no apparent distress at this time. Pt ambulate to room dc2 13 with steady gait, report received, care resumed. Pt in nad. 22:00 Pain: Complains of pain in generalized abdominal pain. dc2 22:00 Neuro: No deficits noted. Level of Consciousness is awake, alert, obeys commands, dc2 Oriented to person, place, time, situation. Cardiovascular: No deficits noted. Heart tones present. Respiratory: No deficits noted. Airway is patent Breath sounds are clear bilaterally. Denies shortness of breath. GI: Bowel sounds present X 4 quads. Reports upper abdominal pain, At present pt presents with right upper quadrant pain, states when he moves the pain is diffuse and radiates all over stomach. : Reports pain Pain when attempting to urinate , denies frequency or burning. Reports that this started yesterday. Derm: No deficits noted. No signs and/or symptoms reported regarding the dermatologic system. Musculoskeletal: No deficits noted. No signs and/or symptoms reported regarding the musculoskeletal system. Vital Signs: 21:44 BP 166 / 106; Pulse 73; Resp 18; Temp 97.5; Pulse Ox 97% on R/A; Weight 162.84 kg; em Height 6 ft. 4 in. (193.04 cm); Pain 6/10; 21:50 BP 153 / 91; em 22:30 BP 128 / 85; Pulse 67; Resp 18; Pain 5/10; dc2 23:30 BP 136 / 83; Pulse 57; Resp 17; Temp 97.6; Pulse Ox 99% on R/A; Pain 0/10; dc2 21:44 Body Mass Index 43.70 (162.84 kg, 193.04 cm) em ED Course: 21:05 Patient arrived in ED. ja2 21:46 Triage completed. em 21:46 Arm band placed on. em 21:50 Patient has correct armband on for positive identification. Bed in low position. Call dc2 light in reach. Side rails up X 1. teletypesetter monitor on. Pulse ox on. NIBP on. Door closed. 21:51 Ruth Romero MD is Attending Physician. ma2 21:52 Sandy Deutsch, RN is Primary Nurse. dc2 21:55 No provider procedures requiring assistance completed. dc2 22:00 Inserted saline lock: 20 gauge in right antecubital area, using aseptic technique. dc2 Blood collected. 22:55 Basic Metabolic Panel Sent. dc2 22:56 CBC with Diff Sent. dc2 22:56 Hepatic Function Sent. dc2 22:56 Lipase Sent. dc2 23:19 ED physician to see patient. dc2 23:30 IV discontinued, intact, bleeding controlled, No redness/swelling at site. Pressure dc2 dressing applied. Administered Medications: 22:30 Drug: NS 0.9% 1000 ml Route: IV; Rate: 1 bolus; Infused Over: 1 hrs; Site: right dc2 antecubital; Delivery: Primary tubing; 23:30 Follow up: IV Status: Completed infusion; IV Intake: 1000ml dc2 22:30 Drug: Pepcid (famotidine) 20 mg Route: IVP; Site: right antecubital; dc2 23:15 Follow up: Response: No adverse reaction dc2 22:30 Drug: Ketorolac 30 mg Route: IVP; Site: right antecubital; dc2 23:15 Follow up: Response: Pain is decreased dc2 Intake: 23:30 IV: 1000ml; Total: 1000ml. dc2 Outcome: 23:20 Discharge ordered by . ma2 23:30 Discharged to home ambulatory. dc2 23:30 Condition: stable 23:30 Discharge instructions given to patient, Instructed on discharge instructions, follow up and referral plans. Demonstrated understanding of instructions, follow-up care, medications, Prescriptions given X 1. 23:39 Patient left the ED. dc2 Signatures: Hao Haque RN RN Ruth Romero MD MD wy2 Awilda Rivera Sandy Deutsch RN RN dc2 Corrections: (The following items were deleted from the chart) 22:04 22:04 Home Meds: doxazosin 2 mg Oral tab 1 tab twice a day; dc2 dc2 22:04 22:04 Home Meds: melatonin 3 mg Oral tab nightly; dc2 dc2 22:04 22:04 Home Meds: metoprolol tartrate 25 mg Oral tab 1 tab 2 times per day; dc2 dc2 :46 PMHx: Hypertension; em dc2 : PMHx: RENAL FAILURE; em dc2
--- NOTE | 2021-04-23 23:21 | EDPHYS ---
Physician Documentation [facility] Name: Riki Amado Age: 25 yrs Sex: Male : 1995 Arrival Date: 04/23/2021 Time: 21:05 Bed 13 Private MD: ED Physician Ruth Romero HPI: 04/23 22:14 This 25 yrs old Male presents to ER via Ambulatory with complaints of STOMACH ma2 PAINS. 22:14 The patient presents with abdominal pain in the epigastric area. Onset: The ma2 symptoms/episode began/occurred gradually, 3 day(s) ago. Associated signs and symptoms: Pertinent positives: diarrhea, Pertinent negatives: blood in stools, diarrhea, fever, hematuria, vomiting blood. Severity of pain: At its worst the pain was mild in the emergency department the pain is unchanged. The patient has experienced similar episodes in the past. Historical: - Allergies: 21:46 No Known Allergies; em - PMHx: 23:20 Hypertension; RENAL FAILURE; dc2 - Immunization history:: Client reports having NOT received the Covid vaccine. - Social history:: Smoking status: Patient reports use of chewing tobacco. Patient uses Patient/guardian denies using alcohol, street drugs, The patient lives with family. - Family history:: not pertinent. ROS: 22:14 Constitutional: Negative for fever, chills, and weight loss. ma2 22:14 All other systems are negative. Exam: 22:14 Constitutional: This is a well developed, well nourished patient who is awake, alert, ma2 and in no acute distress. Head/Face: Normocephalic, atraumatic. Eyes: Pupils equal round and reactive to light, extra-ocular motions intact. Lids and lashes normal. Conjunctiva and sclera are non-icteric and not injected. Cornea within normal limits. Periorbital areas with no swelling, redness, or edema. Neck: Trachea midline, no thyromegaly or masses palpated, and no cervical lymphadenopathy. Supple, full range of motion without nuchal rigidity, or vertebral point tenderness. No Meningismus. Chest/axilla: Normal chest wall appearance and motion. Nontender with no deformity. No lesions are appreciated. Cardiovascular: Regular rate and rhythm with a normal S1 and S2. No gallops, murmurs, or rubs. Normal PMI, no JVD. No pulse deficits. Respiratory: Lungs have equal breath sounds bilaterally, clear to auscultation and percussion. No rales, rhonchi or wheezes noted. No increased work of breathing, no retractions or nasal flaring. Abdomen/GI: Soft, non-tender, with normal bowel sounds. No distension or tympany. No guarding or rebound. No evidence of tenderness throughout. Back: No spinal tenderness. No costovertebral tenderness. Full range of motion. Skin: Warm, dry with normal turgor. Normal color with no rashes, no lesions, and no evidence of cellulitis. MS/ Extremity: Pulses equal, no cyanosis. Neurovascular intact. Full, normal range of motion. Neuro: Awake and alert, GCS 15, oriented to person, place, time, and situation. Cranial nerves II-XII grossly intact. Motor strength 5/5 in all extremities. Sensory grossly intact. Cerebellar exam normal. Normal gait. Vital Signs: 21:44 BP 166 / 106; Pulse 73; Resp 18; Temp 97.5; Pulse Ox 97% on R/A; Weight 162.84 kg; em Height 6 ft. 4 in. (193.04 cm); Pain 6/10; 21:50 BP 153 / 91; em 22:30 BP 128 / 85; Pulse 67; Resp 18; Pain 5/10; dc2 23:30 BP 136 / 83; Pulse 57; Resp 17; Temp 97.6; Pulse Ox 99% on R/A; Pain 0/10; dc2 21:44 Body Mass Index 43.70 (162.84 kg, 193.04 cm) em MDM: 21:51 Patient medically screened. ma2 22:14 Differential diagnosis: gastritis, gastroesophageal reflux disease, Irritable bowel ma2 syndrome. 23:19 Data reviewed: vital signs, nurses notes. Counseling: I had a detailed discussion with ma2 the patient and/or guardian regarding: the historical points, exam findings, and any diagnostic results supporting the discharge/admit diagnosis, the presence of at least one elevated blood pressure reading (>120/80) during this emergency department visit, the need for outpatient follow up. Response to treatment: the patient's symptoms have markedly improved after treatment. 04/23 22:11 Order name: Basic Metabolic Panel; Complete Time: 23:18 [facility] 04/23 22:11 Order name: CBC with Diff; Complete Time: 23:18 [facility] 04/23 22:11 Order name: Hepatic Function; Complete Time: 23:18 [facility] 04/23 22:11 Order name: Lipase; Complete Time: 23:18 [facility] 04/23 22:49 Order name: Urine Dipstick-Ancillary; Complete Time: 23:18 [facility] 04/23 22:11 Order name: IV Saline Lock; Complete Time: 22:55 [facility] 04/23 22:11 Order name: Labs collected and sent; Complete Time: 22:55 [facility] 04/23 22:11 Order name: Urine Dipstick-Ancillary (obtain specimen); Complete Time: 23:34 mn2 Administered Medications: 22:30 Drug: NS 0.9% 1000 ml Route: IV; Rate: 1 bolus; Infused Over: 1 hrs; Site: right dc2 antecubital; Delivery: Primary tubing; 23:30 Follow up: IV Status: Completed infusion; IV Intake: 1000ml oh2 22:30 Drug: Pepcid (famotidine) 20 mg Route: IVP; Site: right antecubital; dc2 23:15 Follow up: Response: No adverse reaction dc2 22:30 Drug: Ketorolac 30 mg Route: IVP; Site: right antecubital; dc2 23:15 Follow up: Response: Pain is decreased dc2 Disposition Summary: 04/23/21 23:20 Discharge Ordered Location: Home ma2 Condition: Stable ma2 Diagnosis - Diarrhea, unspecified ma2 Followup: ma2 - With: Private Physician - When: Tomorrow - Reason: Continuance of care Discharge Instructions: - Discharge Summary Sheet ma2 - Diarrhea, Adult ma2 Forms: - Medication Reconciliation Form ma2 - Thank You Letter ma2 - Antibiotic Education ma2 - Prescription Opioid Use ma2 Prescriptions: - Pepcid 20 mg Oral Tablet - take 1 tablet by ORAL route every 12 hours for 10 days; 20 tablet; Refills: 0, ma2 Product Selection Permitted Signatures: Dispatcher [employer] Hao Coffman, RN Ruth Watson MD MD mn2 Get, JAVIER Delgado RN dc2 Corrections: (The following items were deleted from the chart) 22:04 22:04 Home Meds: doxazosin 2 mg Oral tab 1 tab twice a day; dc2 dc2 : 22:04 Home Meds: melatonin 3 mg Oral tab nightly; dc2 dc2 22:04 Home Meds: metoprolol tartrate 25 mg Oral tab 1 tab 2 times per day; oh2 dc2 : 21:46 PMHx: Hypertension; dc2 23: 21:46 PMHx: RENAL FAILURE; dc2
[2021-04-23] MEDS ORDERED: KETOROLAC 30 MG/ML INJ ONE (23:22)
[2021-04-23] MEDS ORDERED: FAMOTIDINE 20 MG/2 ML VIAL IV ONE (23:23)
[2021-04-23] MEDS ORDERED: NA CHLORIDE 0.9% 1,000 ML ONE (23:24)
[2021-04-24 00:55] VITALS: BP 136/83; TEMP 97.6; O2SAT 99
--- OUTSIDE RECORDS SUMMARY | 2021-05-05 06:57 | XMS REPORT | Continuity of Care Document ---
:1995 Author Organization [facility] t Address [address] [place] [address] Care Team Providers Name Role Phone Lab, Fam Pob I Attending Clinician Unavailable Gibson CARDENASP Attending Clinician Doctor Unassigned, Name Attending Clinician Unavailable Payers Payer Name Policy Type Policy Number Effective Date Expiration Date Valerie CARMONA COMM [id number] 2018 [facility] 00:00:00 Problems Condition Condition Condition Status Onset Resolution Last Treating Co mments Source Name Details Category Date Date Treatment Clinician Date Right Right Disease Active [facility] wrist pain wrist pain 4-18 it y of 00:00: [place] 00 Medical Branch Morbid Morbid Disease Active 2006-06 [facility] obesity obesity 0-10 ity of 00:00: [place] 00 Medical Branch HLD HLD Disease Active 2006-06 Overview: Elieser torres (hyperlipi (hyperlipi 0-10 ICD10 it y of demia) demia) 00:00: Diagnosis [place] 00 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 Family Family Disease Active 2006-06 [facility] history of history of 0-10 it y of diabetes diabetes 00:00: [place] mellitus mellitus 00 Medica l Branch Other Other Disease [facility] 2006-[facility] Obesity; ity of problem problem 00:00: HTN [place] within the within the 00 Me dical family family Branch Family Family Disease Active 2006-06 Overview: Elieser torres history of history of 0-10 ICD10 it y of malignant malignant 00:00: Diagnosis [place] neoplasm neoplasm 00 Term Medica l Tube Splicer Branch Utility Stage 3 Stage [address] [facility] kidney kidney [facility] disease disease l Out[facility] ent Clinics Essential Essential Problem Active [facility] hypertensi hypertensi Stephanie kes - on on [facility] Outpat[facility] Clinics Slow Slow Diagnosis Active [facility] transit transit [facility] - constipati constipati [facility] Allergies, Adverse Reactions, Alerts Allergy Allergy Status Severity Reaction(s) Onset Inactive Treating Comm ents Source Name Type Date Date Clinician NO KNOWN Drug Active Univers ALLERGIE Class ity of S [facility] Social History Social Habit Start Date Stop Date Quantity Comments Source Exposure to Yes [facility] SARS-CoV-2 (event) Medica l [place] Sex Assigned At [facility] Medical Branch Alcohol intake 2018-09-23 2018-09-23 [facility] 00:00:00 00:00:00 [facility] Smoking Status Start Date Stop Date Source Never smoker [facility] Medications Ordered Filled Start Stop Current Ordering Indication Dosage Frequency Signature Comments Components Source Medication Medication Date Date Medication? Clinician (SIG) Name Name melatonin Yes 4.5mg Take 4.5 Uni vers (MELATIN) 3 4-20 mg by ity of mg [place] 17[place]59[place] bed[place]. Medical Branch omega-3 Yes 1g Take 1 g Univer s fatty 4-20 by mouth 3 ity of acids-vitam 17:59: (three) [place] in E (FISH 58 times Medical OIL) 1,000 daily. Branch mg capsule melatonin Yes 4.5mg Take 4.5 Uni vers (MELATIN) 3 4-20 mg by ity of mg tablet 17:59[place] bed[place]. Medical Branch omega-3 Yes 1g Take 1 g Univer s fatty 4-20 by mouth 3 ity of acids-vitam 17:59: (three) [place] in E (FISH 58 times Medical OIL) 1,000 daily. Branch mg capsule amoxicillin Yes 500mg Take 500 U nivers -pot 4-13 mg by ity of clavulanate 00:00: mouth 3 [place] 500 mg 00 (three) Medical (AUGMENTIN times Branch 500) daily. 500-125 mg tablet amoxicillin Yes 500mg Take 500 U nivers -pot 4-13 mg by ity of clavulanate 00:00: mouth 3 [place] 500 mg 00 (three) Medical (AUGMENTIN times Branch 500) daily. 500-125 mg tablet ADDERALL XR Yes 30mg Take 30 mg Univers 30 mg 24 hr 3-31 by mouth ity of capsule 00:00: every [place] morning. Medical Branch ADDERALL XR Yes 30mg Take 30 mg Univers 30 mg 24 hr 3-31 by mouth ity of capsule 00:00: every [place] morning. Medical Branch hydrochloro Yes 12.5mg Take 12.5 Univers thiazide 3-30 mg by ity of (HYDRODIURI 00:00: mouth [place] L) 12.5 mg 00 daily. Medical tablet Branch simvastatin Yes 40mg Take 40 mg Univers (ZOCOR) 40 3-30 by mouth ity o f mg tablet 00:00: daily. [place] Medical Branch hydrochloro Yes 12.5mg Take 12.5 Univers thiazide 3-30 mg by ity of (HYDRODIURI 00:00: mouth [place] L) 12.5 mg 00 daily. Medical tablet Branch simvastatin Yes 40mg Take 40 mg Univers (ZOCOR) 40 3-30 by mouth ity o f mg tablet 00:00: daily. [place] Medical Branch lisinopril Yes 40mg Take 40 mg U nivers (PRINIVIL,Z 3-20 by mouth ity of ESTRIL) 40 00:00: daily. [place] mg tablet Medical Branch lisinopril Yes 40mg Take 40 mg U nivers (PRINIVIL,Z 3-20 by mouth ity of ESTRIL) 40 00:00: daily. [place] mg tablet Medical Branch FLUoxetine Yes 10mg Take 10 mg U nivers (PROZAC) 10 2-22 by mouth ity of mg capsule 00:00: [place]. [place] [facility] [place] FLUoxetine Yes 10mg Take 10 mg U nivers (PROZAC) 10 2-22 by mouth ity of mg capsule 00:00: as needed. [place] [facility] Amlodipine Amlodipine Yes Nolvia [address] [facility] Besylate Besylate [facility] Gabapentin Gabapentin Yes N[place]via [address] [facility] Doxazosin Doxazosin Yes [place] [address] [facility] Mesylate Mesylate [facility] Metoprolol Metoprolol Yes [place] [address] [facility] Tartrate Tartrate [facility] with food [facility] Melatonin Melatonin Yes Nolvia [address] [facility] at bedtime [facility] - as needed [facility] with food l Outpati ent Clinics Tylenol # 3 Tylenol # 3 Yes Nolvia one tab [facility] Procedures This patient has no known procedures. Encounters Start End Encounter Admission Attending Care Care Encounter Source Date/Time Date/Time Type Type Clinicians Facility Department ID 2020-01-08 2020-01-08 Outpatient [facility] [id number] Univers 14:40:00 14:40:00 [id number] ity of [facility] 2020-01-08 2020-01-08 Outpatient [facility] [id number] Univers 14:40:00 14:40:00 ity [facility] 2020-01-08 2020-01-08 Laboratory Lab, Adc Fam Pob I [facility] [id number] Univers 14:15:02 14:35:02 Only [place], Nayely [facility] [id number] ity of [place] [id number] [place] Professio [phone] [address] Office [address] 2020-01-08 2020-01-08 Letter Doctor CIARRA [id number] Univers 00:00:00 00:00:00 (Out) Unassigned, BRANT [id number] ity of [facility] [id number] [place] as [phone] [address] 2019-04-08 2019-04-08 [facility] [place] [id number] [facility] 13:00:00 13:00:00 [facility] Medicine Outpati ent Clinics 2018-03-12 2018-03-12 [facility] [id number] [facility] 10:00:00 10:00:00 [facility] Medicine Outpati ent Clinics Results This patient has no known results.
== END 2021-04-23 23:39 | disposition home or self-care (01) ==
LOC: ER 21:00
DX: R19.7 Diarrhea, unspecified (principal); I10 Essential (primary) hypertension; F17.220 Nicotine dependence, chewing tobacco, uncomplicated
CPT/HCPCS: 36415; 80048; 80076; 81003; 83690; 85025; 96361; 96374; 96375; 99284; J7030

== ENCOUNTER 2022-02-06 14:00 | Emergency (ER) | payer SELFPAY ==
--- OUTSIDE RECORDS SUMMARY | 2022-02-06 14:02 | XMS REPORT | Continuity of Care Document ---
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 Family Family Disease Active 2006-06 Univers history of history of 0-10 it y of diabetes diabetes 00:00: [place] mellitus mellitus 00 Medica l Branch Other Other Disease Active 2006-06 Overview: [facility] health health 0-10 Obesity; ity of problem problem 00:00: HTN [place] within the within the 00 Me dical family family Branch Family Family Disease Active 2006-06 Overview: Elieser s history of history of 0-10 ICD10 it y of malignant malignant 00:00: Diagnosis [place] neoplasm neoplasm 00 Term Medica l Marketing Producer Branch Utility Stage 3 Stage 3 Problem Active 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 [facility] Essential Essential Problem Active Com mon hypertensi hypertensi Sp niya on on - CHI [facility] Slow Slow Diagnosis Active Common transit transit Spirit constipati constipati - CHI on on [facility] Allergies, Adverse Reactions, Alerts Allergy Allergy Status Severity Reaction(s) Onset Inactive Treating Comm ents Source Name Type Date Date Clinician NO KNOWN Drug Active Univers ALLERGIE Class ity of S [place] [facility] Social History Social Habit Start Date Stop Date Quantity Comments Source Exposure to Yes [facility] SARS-CoV-2 (event) Medica l [place] Sex Assigned At [facility] Branch Alcohol intake 2018-09-23 2018-09-23 [facility] 00:00:00 00:00:00 [facility] Smoking Status Start Date Stop Date Source Never smoker [facility] Medications Ordered Filled Start Stop [...] by mouth ity of capsule 00:00: every [place] morning. Medical Branch ADDERALL XR Yes 30mg Take 30 mg Univers 30 mg 24 hr 3-31 by mouth ity of capsule 00:00: every [place] morning. Medical Branch hydrochloro Yes 12.5mg Take 12.5 Univers thiazide 3-30 mg by ity of (HYDRODIURI 00:00: mouth [place] L) 12.5 mg 00 daily. Medical tablet Branch simvastatin Yes 40mg Take 40 mg Univers (ZOCOR) 40 3-30 by mouth ity o f mg tablet 00:00: daily. [place] Medical Branch hydrochloro Yes 12.5mg Take 12.5 Univers thiazide 3-30 mg by ity of (HYDRODIURI 00:00: mouth [place] L) 12.5 mg 00 daily. Medical tablet Branch simvastatin Yes 40mg Take 40 mg Univers (ZOCOR) 40 3-30 by mouth ity o f mg tablet 00:00: daily. [place] Medical Branch lisinopril Yes 40mg Take 40 mg U nivers (PRINIVIL,Z 3-20 by mouth ity of ESTRIL) 40 00:00: daily. [place] mg tablet Medical Branch lisinopril Yes 40mg Take 40 mg U nivers (PRINIVIL,Z 3-20 by mouth ity of ESTRIL) 40 00:00: daily. [place] mg tablet Medical Branch FLUoxetine Yes 10mg Take 10 mg U nivers (PROZAC) 10 2-22 by mouth ity of mg capsule 00:00: as needed. [place] [facility] [place] FLUoxetine Yes 10mg Take 10 mg U nivers (PROZAC) 10 2-22 by mouth ity of mg capsule 00:00: as needed. [place] [facility] Branch Amlodipine Amlodipine Yes Nolvia 1 tablet Common Besylate Besylate [facility] Gabapentin Gabapentin Yes Nolvia 1 capsule Common [facility] Doxazosin Doxazosin Yes Nolvia 1 tablet Common Mesylate Mesylate [facility] Metoprolol Metoprolol Yes Nolvia 1 tablet Common Tartrate Tartrate [place] with food S [facility] Melatonin Melatonin Yes Nolvia 1 tablet Common [place] at bedtime Spirit as needed - CHI with food [facility] Tylenol # 3 Tylenol # 3 Yes Nolvia one tab Common [place] Spirit - CHI [facility] Procedures This patient has no known procedures. Encounters Start End Encounter Admission Attending Care Care Encounter Source Date/Time Date/Time Type Type Clinicians Facility Department ID 2020-01-08 2020-01-08 Outpatient R [facility] [id number] Univers 14:40:00 14:40:00 [id number] ity of [place] [facility] 2020-01-08 2020-01-08 Outpatient R [facility] [id number] Univers 14:40:00 14:40:00 ity [facility] 2020-01-08 2020-01-08 Laboratory Lab, Adc Fam Pob I [facility] [id number]. [id number] Univers 14:15:02 14:35:02 Only An[facility], [facility] [id number] ity of [place] [id number] [place] as Professio [id number] [address] 2020-01-08 2020-01-08 Letter Doctor CIARRA [id number] Univers 00:00:00 00:00:00 (Out) Unassigned, BRANT [id number] ity of [place] [facility] [id number] [place] as [id number] [address] 2019-04-08 2019-04-08 Outpatient [facility] [place] [id number] Common 13:00:00 13:00:00 [facility] 2018-03-12 2018-03-12 Outpatient [facility] [id number] Common 10:00:00 10:00:00 [facility] Results This patient has no known results.
--- NOTE | 2022-02-06 14:36 | RAD REPORT ---
EXAM DESCRIPTION: RAD - Chest Single View - 02/06/2022 2:30 pm CLINICAL HISTORY: CONGESTION COMPARISON: Two view chest November 2018 TECHNIQUE: AP portable chest image was obtained 02/06/2022 2:30 pm . FINDINGS: Lungs are clear. Lung parenchymal pattern matches comparison. Heart and vasculature are no rmal. No measurable pleural effusion and no pneumothorax. No acute bony abnormality seen. No acute ao rtic findings suspected. IMPRESSION: No acute cardiopulmonary process. No significant change from comparison study.
--- NOTE | 2022-02-06 15:05 | ER ---
Nurse's Notes [facility] Name: Riki Amado Age: 26 yrs Sex: Male : 1995 Arrival Date: 02/06/2022 Time: 14:04 Bed Waiting Private MD: Diagnosis: Acute bronchitis, unspecified Presentation: 02/06 14:16 Chief complaint: Patient states: Pt states he is getting over covid put has sore throat jh5 and winded. Coronavirus screen: Vaccine status: Patient reports being unvaccinated. Client denies travel out of the [place] in the last 14 days. Ebola Screen: Patient negative for fever greater than or equal to 101.5 degrees Fahrenheit, and additional compatible Ebola Virus Disease symptoms Patient denies exposure to infectious person. Patient denies travel to an Ebola-affected area in the 21 days before illness onset. Initial Sepsis Screen: Does the patient meet any 2 criteria? Yes Does the patient have a suspected source of infection? No. Patient's initial sepsis screen is negative. Risk Assessment: Do you want to hurt yourself or someone else? Patient reports no desire to harm self or others. 14:16 Method Of Arrival: Ambulatory [facility] 14:16 Acuity: DION 4 [facility] 16:11 Onset of symptoms was January 2022. [facility] Triage Assessment: 14:17 General: Appears in no apparent distress. Behavior is calm, cooperative, appropriate [facility] for age. Pain: Denies pain. EENT: No deficits noted. Historical: - PMHx: 14:17 Hypertension; RENAL FAILURE; 5 - Immunization history:: Adult Immunizations up to date. - Social history:: Smoking status: Patient reports the use of cigarette tobacco products, smokes one-half pack cigarettes per day. Screenin:19 Abuse screen: Denies threats or abuse. Denies injuries from another. Nutritional [facility] screening: No deficits noted. Tuberculosis screening: No symptoms or risk factors identified. Fall Risk None identified. Assessment: 15:46 Respiratory: Airway is patent Respiratory effort is even, unlabored, Breath sounds are 5 clear. EENT: Throat is reddened. Vital Signs: 14:16 BP 126 / 88; Pulse 79; Resp 16; Temp 98.9; Pulse Ox 100% ; jh5 ED Course: 14:04 Patient arrived in ED. mr 14:06 Michael Castro is PHCP. jl9 14:06 Andrei Roberts DO is Attending Physician. jl9 14:17 Triage completed. jh5 14:17 Arm band placed on right wrist. jh5 14:19 Patient has correct armband on for positive identification. Adult w/ patient. jh5 14:19 No provider procedures requiring assistance completed. jh5 14:21 Flu Sent. kc6 14:21 Strep Sent. kc6 14:30 XRAY Chest (1 view) In Process Unspecified. EDMS 16:12 Patient did not have IV access during this emergency room visit. 5 Administered Medications: No medications were administered Medication: 15:47 VIS not applicable for this client. [facility] Outcome: 15:04 Discharge ordered by . chelo 15:46 Condition: good [facility] 16:11 Discharged to home [facility] 16:11 Discharge instructions given to patient. 16:12 Patient left the ED. [facility] Signatures: Dispatcher [employer] EDNH Felipa Perez Jessica RN RN 5 Matthew Michael [facility] Angelica Bertrand [facility]
--- NOTE | 2022-02-06 15:05 | EDPHYS ---
Physician Documentation [facility] Name: Riki Amado Age: 26 yrs Sex: Male : 1995 Arrival Date: 02/06/2022 Time: 14:04 Bed Waiting Private MD: ED Physician Andrei Roberts HPI: 02/06 14:20 This 26 yrs old Male presents to ER via Ambulatory with complaints of Cough, jl9 Sore Throat, Breathing Difficulty. Patient reports diagnosed with COVID 2 weeks ago and tested negative yesterday. . 14:20 The patient or guardian reports cough. Onset: The symptoms/episode began/occurred 2 jl9 week(s) ago. Modifying factors: The symptoms are alleviated by the symptoms are aggravated by exertion. Associated signs and symptoms: Pertinent positives:. Associated signs and symptoms:. Historical: - PMHx: 14:17 Hypertension; RENAL FAILURE; jh5 - Immunization history:: Adult Immunizations up to date. - Social history:: Smoking status: Patient reports the use of cigarette tobacco products, smokes one-half pack cigarettes per day. ROS: 14:21 Constitutional: Negative for fever, chills, and weight loss, Eyes: Negative for injury, jl9 pain, redness, and discharge. 14:21 Neck: Negative for injury, pain, and swelling, Cardiovascular: Negative for chest pain, palpitations, and edema. 14:21 Abdomen/GI: Negative for abdominal pain, nausea, vomiting, diarrhea, and constipation, Back: Negative for injury and pain, : Negative for injury, bleeding, discharge, and swelling, MS/Extremity: Negative for injury and deformity, Skin: Negative for injury, rash, and discoloration, Neuro: Negative for headache, weakness, numbness, tingling, and seizure, Psych: Negative for depression, anxiety, suicide ideation, homicidal ideation, and hallucinations, Allergy/Immunology: Negative for hives, rash, and allergies, Endocrine: Negative for neck swelling, polydipsia, polyuria, polyphagia, and marked weight changes, Hematologic/Lymphatic: Negative for swollen nodes, abnormal bleeding, and unusual bruising. 14:21 ENT: Positive for sore throat. 14:21 Respiratory: Positive for cough, "sounds productive". Exam: 14:22 Constitutional: This is a well developed, well nourished patient who is awake, alert, jl9 and in no acute distress. Head/Face: Normocephalic, atraumatic. Eyes: Pupils equal round and reactive to light, extra-ocular motions intact. Lids and lashes normal. Conjunctiva and sclera are non-icteric and not injected. Cornea within normal limits. Periorbital areas with no swelling, redness, or edema. 14:22 Neck: Trachea midline, no thyromegaly or masses palpated, and no cervical lymphadenopathy. Supple, full range of motion without nuchal rigidity, or vertebral point tenderness. No Meningismus. Chest/axilla: Normal chest wall appearance and motion. Nontender with no deformity. No lesions are appreciated. Cardiovascular: Regular rate and rhythm with a normal S1 and S2. No gallops, murmurs, or rubs. Normal PMI, no JVD. No pulse deficits. 14:22 Abdomen/GI: Soft, non-tender, with normal bowel sounds. No distension or tympany. No guarding or rebound. No evidence of tenderness throughout. Back: No spinal tenderness. No costovertebral tenderness. Full range of motion. Skin: Warm, dry with normal turgor. Normal color with no rashes, no lesions, and no evidence of cellulitis. MS/ Extremity: Pulses equal, no cyanosis. Neurovascular intact. Full, normal range of motion. Neuro: Awake and alert, GCS 15, oriented to person, place, time, and situation. Cranial nerves II-XII grossly intact. Motor strength 5/5 in all extremities. Sensory grossly intact. Cerebellar exam normal. Normal gait. Psych: Awake, alert, with orientation to person, place and time. Behavior, mood, and affect are within normal limits. 14:22 ENT: External ear(s): are unremarkable, Ear canal(s): are normal, TM's: are normal, Mouth: is normal, Posterior pharynx: erythema. 14:22 Respiratory: the patient does not display signs of respiratory distress, Respirations: normal, Breath sounds: + upper airway congestion. Vital Signs: 14:16 BP 126 / 88; Pulse 79; Resp 16; Temp 98.9; Pulse Ox 100% ; jh5 MDM: 14:06 Patient medically screened. 9 14:22 Data reviewed: vital signs, nurses notes. 9 15:03 Counseling: I had a detailed discussion with the patient and/or guardian regarding: the jl9 historical points, exam findings, and any diagnostic results supporting the discharge/admit diagnosis, lab results, radiology results, the need for outpatient follow up, to return to the emergency department if symptoms worsen or persist or if there are any questions or concerns that arise at home. 02/06 14:14 Order name: Strep; Complete Time: 15:01 9 02/06 14:14 Order name: Flu; Complete Time: 15:02/06 14:14 Order name: XRAY Chest (1 view); Complete Time: 15:02/06 14:49 Order name: Throat Culture EDMS Administered Medications: No medications were administered Disposition: 17:58 Co-signature as Attending Physician, Andrei PUTNAM was immediately available on-site ms3 in the Emergency Department for consultation in the care of the patient.. Disposition Summary: 02/06/22 15:04 Discharge Ordered Location: Home jl9 Condition: Stable jl9 Diagnosis - Acute bronchitis, unspecified jl9 Followup: jl9 - With: Private Physician - When: 1 - 2 days - Reason: Recheck today's complaints, Continuance of care, Re-evaluation by your physician Discharge Instructions: - Discharge Summary Sheet jl9 - Acute Bronchitis, Adult jl9 - Cough, Adult, [id number] jl9 Forms: - Medication Reconciliation Form jl9 - Thank You Letter jl9 - Antibiotic Education jl9 - Prescription Opioid Use jl9 Prescriptions: - albuterol sulfate 90 mcg/actuation Inhalation HFA aerosol inhaler - inhale 2 puff by INHALATION route every 6 hours As needed; 18 gram; Refills: 0, jl9 Product Selection Permitted - [id number] 4-10-20 mg/5 mL Oral liquid - take 5 milliliter by ORAL route every 4-6 hours as needed; 100 milliliter; jl9 Refills: 0, Product Selection Permitted - Tessalon Perles 100 mg Oral Capsule - take 1 capsule by ORAL route every 8 hours As needed; 15 capsule; Refills: 0, jl9 Product Selection Permitted Signatures: Dispatcher [employer] EDAndrei Armendariz DO DO ms3 Awilda Menezes RN RN Michael Murry jl9
[2022-02-06 16:31] VITALS: BP 126/88; TEMP 98.9; O2SAT 100
== END 2022-02-06 16:12 | disposition home or self-care (01) ==
LOC: ER 14:00
DX: J20.9 Acute bronchitis, unspecified (principal); N19 Unspecified kidney failure; I10 Essential (primary) hypertension; F17.210 Nicotine dependence, cigarettes, uncomplicated
CPT/HCPCS: 71045; 87070; 87081; 87804

== ENCOUNTER 2022-06-10 17:05 | Emergency (ER) | payer SELFPAY ==
--- OUTSIDE RECORDS SUMMARY | 2022-06-10 17:08 | XMS REPORT | Continuity of Care Document ---
:1995 Author Organization [facility] t Address [address] [place] [address] Care Team Providers Name Role Phone PCP, PATIENT DOES NOT HAVE A Primary Care Physician Unavaila TONYA Chapman Attending Clinician Unavailable TONYA REA Attending Clinician Unavailable Lab, Adc Fam Pob I Attending Clinician Unavailable Nayely Kim Attending Clinician Doctor Unassigned, [place] Attending Clinician Unavailable Payers Payer Name Policy Type Policy Number Effective Date Expiration Date Valerie CARMONA COMM [id number] 2018 [employer] [employer] 00:00:00 Problems Condition Condition Condition Status Onset Resolution Last Treating Co mments Source Name Details Category Date Date Treatment Clinician Date Right Right Disease Active 20160 Univers wrist pain wrist pain 4-18 it y of 00:00: [place] 00 Medical Branch Morbid Morbid Disease Active 2006-06 Univers obesity obesity 0-10 ity of 00:00: [place] 00 Medical Branch HLD HLD Disease Active 2006-06 [facility] (hyperlipi [facility]-10 ICD10 it y of demia) demia) 00:00: Diagnosis [place] 00 Term Medical Operations Tech Branch Utility Family Family Disease Active 2006-06 Univers history of history of 0-10 it y of diabetes diabetes 00:00: [place] mellitus mellitus 00 Medica l Branch Other Other Disease Active 2006-06 [facility] 0-[facility] Obesity; ity of problem problem 00:00: HTN [place] within the within the 00 Me dical family family Branch Family Family Disease Active 2007-1 Overview: Univer s history of history of 0-10 ICD10 it y of malignant malignant 00:00: Diagnosis [place] neoplasm neoplasm 00 Term Medica l Operations Tech Branch Utility Stage 3 Stage 3 Problem Active 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 [facility] Essential Essential Problem Active Com mon hypertensi hypertensi Sp niya on on - CHI [facility] Slow Slow Diagnosis Active Common transit transit Spirit constipati constipati - CHI on on [facility] Allergies, Adverse Reactions, Alerts Allergy Allergy Status Severity Reaction(s) Onset Inactive Treating Comm ents Source Name Type Date Date Clinician NO KNOWN Drug Active [facility] ALLERGIE Class ity of S [facility] Social History Social Habit Start Date Stop Date Quantity Comments Source Exposure to Yes [facility] SARS-CoV-2 (event) Medica l Branch Sex Assigned At [facility] Branch Alcohol intake 2018-09-23 2018-09-23 [facility] 00:00:00 00:00:00 Medical Branch Smoking Status Start Date Stop Date Source Never smoker [facility] Medications Ordered Filled Start Stop Current Ordering [...] by mouth ity of capsule 00:00: every [place] 00 morning. Medical Branch ADDERALL XR Yes 30mg Take 30 mg Univers 30 mg 24 hr 3-31 by mouth ity of capsule 00:00: every [place] 00 morning. Medical Branch hydrochloro Yes 12.5mg Take 12.5 Univers thiazide 3-30 mg by ity of (HYDRODIURI 00:00: mouth [place] L) 12.5 mg 00 daily. Medical tablet Branch simvastatin Yes 40mg Take 40 mg Univers (ZOCOR) 40 3-30 by mouth ity o f mg tablet 00:00: daily. Medical Branch hydrochloro Yes 12.5mg Take 12.5 Univers thiazide 3-30 mg by ity of (HYDRODIURI 00:00: mouth [place] L) 12.5 mg 00 daily. Medical tablet Branch simvastatin Yes 40mg Take 40 mg Univers (ZOCOR) 40 3-30 by mouth ity o f mg tablet 00:00: daily. Medical Branch lisinopril Yes 40mg Take 40 mg U nivers (PRINIVIL,Z 3-20 by mouth ity of ESTRIL) 40 00:00: daily. [place] mg tablet Medical Branch lisinopril Yes 40mg Take 40 mg U nivers (PRINIVIL,Z 3-20 by mouth ity of ESTRIL) 40 00:00: daily. [place] mg tablet Medical Branch FLUoxetine Yes 10mg Take 10 mg U nivers (PROZAC) 10 2-22 by mouth ity of mg capsule 00:00: as needed. [place] [facility] [place] FLUoxetine Yes 10mg Take 10 mg U nivers (PROZAC) 10 2-22 by mouth ity of mg capsule 00:00: as needed. [place] [facility] [place] Amlodipine Amlodipine Yes Nolvia 1 tablet Common Besylate Besylate [place] [facility] - [facility] Gabapentin Gabapentin Yes Nolvia 1 capsule Common [place] [facility] - CHI [facility] Doxazosin Doxazosin Yes Nolvia 1 tablet Common Mesylate Mesylate [place] [facility] Metoprolol Metoprolol Yes Nolvia 1 tablet Common Tartrate Tartrate [place] with food S pirit - [facility] Melatonin Melatonin Yes Nolvia 1 tablet Common [place] at bedtime Spirit as needed - CHI with food [facility] Tylenol # 3 Tylenol # 3 Yes Nolvia one tab Common [place] [facility] - [facility] Procedures This patient has no known procedures. Encounters Start End Encounter Admission Attending Care Care Encounter Source Date/Time Date/Time Type Type Clinicians Facility Department ID 2022-02-27 2022-02-27 Outpatient R TONYA REA [facility] [id number] Univers 15:30:00 15:30:00 TONYA REA ity [facility] 2020-01-08 2020-01-08 Outpatient R [facility] [id number] Univers 14:40:00 14:40:00 ity [facility] 2020-01-08 2020-01-08 Laboratory Lab, Adc Fam Pob I [facility] 1.2. [id number] Univers 14:15:02 14:35:02 Only Nayely Arreaga [facility] [id number] ity of [place] [id number] [place] [id number] [address] 2020-01-08 2020-01-08 Letter Doctor CIARRA [id number] [place] [address] 00:00:00 00:00:00 (Out) Unassigned, BRANT [id number] ity of [place] [employer] [facility] [id number] [place] as [id number] [address] 2019-04-08 2019-04-08 Outpatient Messi Newman [id number] Common 13:00:00 13:00:00 t [facility] Family Medicine [facility] 2018-03-12 2018-03-12 Outpatient Messi Newman [id number] Common 10:00:00 10:00:00 [facility] Results This patient has no known results.
[2022-06-10] MEDS ORDERED: TETRACAINE HCL 0.5% 4ML OPTH ONE (17:20)
[2022-06-10] MEDS ORDERED: FLUORESCEIN SODIUM 1 MG/WRAP ONE (17:20)
--- NOTE | 2022-06-10 18:40 | ER ---
Nurse's Notes [facility] Name: Riki Amado Age: 26 yrs Sex: Male : 1995 Arrival Date: 06/10/2022 Time: 17:09 Bed 12 Private MD: Diagnosis: Injury of conjunctiva and corneal abrasion without foreign body, right eye, initial encounter Presentation: 06/10 17:14 Chief complaint: Patient states: Got rust in right eye yesterday and feeling pressure jl7 now. Coronavirus screen: At this time, the client does not indicate any symptoms associated with coronavirus-19. Ebola Screen: No symptoms or risks identified at this time. Initial Sepsis Screen: Does the patient meet any 2 criteria? No. Patient's initial sepsis screen is negative. Does the patient have a suspected source of infection? No. Patient's initial sepsis screen is negative. Risk Assessment: Do you want to hurt yourself or someone else? Patient reports no desire to harm self or others. Onset of symptoms was June 09, 2022. 17:14 Method Of Arrival: Ambulatory [facility] 17:14 Acuity: DION 3 jl7 Triage Assessment: 17:15 General: Appears in no apparent distress. uncomfortable, Behavior is calm, cooperative, jl7 appropriate for age. Pain: Complains of pain in right eye Pain currently is 3 out of 10 on a pain scale. Historical: - Allergies: 17:15 No Known Allergies; jl7 - Home Meds: 17:15 None [Active]; jl7 - PMHx: 17:15 Hypertension; RENAL FAILURE; jl7 - PSHx: 17:15 Appendectomy; jl7 - Immunization history:: Client reports having NOT received the Covid vaccine. Last tetanus immunization: unknown. - Social history:: Smoking status: Patient reports use of chewing tobacco. Screenin:03 [facility] ED Fall Risk Assessment (Adult) History of falling in the last 3 months, jl7 including since admission No falls in past 3 months (0 pts). Humpty Dumpty Scale Fall Assessment Tool (age< 18yrs) Gender Male (2 pts). Abuse screen: Denies threats or abuse. Denies injuries from another. Nutritional screening: No deficits noted. Tuberculosis screening: No symptoms or risk factors identified. Fall Risk No fall in past 12 months (0 pts). Total Miller Fall Scale indicates No Risk (0-24 pts). Vital Signs: 17:14 BP 160 / 110; Pulse 70; Resp 17; Temp 98.7; Pulse Ox 97% ; Weight 163.29 kg; Height 6 jl7 ft. 4 in. (193.04 cm); Pain 3/10; 19:03 BP 144 / 112; Pulse 72; Resp 15; Pulse Ox 98% ; jl7 17:14 Body Mass Index 43.82 (163.29 kg, 193.04 cm) jl7 ED Course: 17:09 Patient arrived in ED. mr 17:10 Gino Jeffries PA is PHCP. cp 17:10 Andrei Roberts DO is Attending Physician. cp 17:15 Triage completed. jl7 17:15 Arm band placed on right wrist. jl7 17:24 Ward Patino RN is Primary Nurse. jl7 18:39 Indigo Whitt MD is Referral Physician. cp 19:03 Patient has correct armband on for positive identification. jl7 19:03 No provider procedures requiring assistance completed. Patient did not have IV access jl7 during this emergency room visit. Administered Medications: 18:00 Drug: Tetracaine Drops 0.5 % 1 drops {Note: administered by FADY Mckoy.} Route: jl7 Ophthalmic; Site: right eye; 18:50 Drug: Gentamicin Drops 0.3 % 1 drops Route: Ophthalmic; Site: right eye; jl7 18:50 Drug: Ibuprofen 800 mg Route: PO; jl7 19:03 Not Given (Pt dischargedd): Tetanus-Diphtheria Toxoid Adult 0.5 ml IM once; Provide jl7 Vaccine Information Statement (VIS). Medication: 19:03 VIS not applicable for this client. jl7 Outcome: 18:40 Discharge ordered by . cp 19:03 Discharged to home ambulatory. jl7 19:03 Condition: stable 19:03 Discharge instructions given to patient, Instructed on discharge instructions, follow up and referral plans. medication usage, Demonstrated understanding of instructions, follow-up care, medications, Prescriptions given X 1. 19:04 Patient left the ED. jl7 Signatures: Chris Felipa mr Gino Jeffries PA PA cp Ward Patino, JAVIER RN jl7 Corrections: (The following items were deleted from the chart) 17:16 17:15 PSHx: None; jl7 jl7
--- NOTE | 2022-06-10 18:40 | EDPHYS ---
Physician Documentation [facility] Name: Riki Amado Age: 26 yrs Sex: Male : 1995 Arrival Date: 06/10/2022 Time: 17:09 Bed 12 Private MD: ED Physician Andrei Roberts HPI: 06/10 17:30 This 26 yrs old Male presents to ER via Ambulatory with complaints of Foreign cp Body In Eye. 17:30 The patient is experiencing foreign body sensation, pain, to the right eye. Onset: The cp symptoms/episode began/occurred yesterday. Associated signs and symptoms: Pertinent negatives: dizziness, ear ache, fever, headache. Patient wears glasses. 17:30 Patient is a 26 y/o male who presents to ED with c/o pressure, pain and foreign body cp sensation to right eye since yesterday. Reports rust blew into eye yesterday. 18:15 visual acuity testing OD is 20/25 and OS is 20/20. cp Historical: - Allergies: 17:15 No Known Allergies; jl7 - Home Meds: 17:15 None [Active]; jl7 - PMHx: 17:15 Hypertension; RENAL FAILURE; jl7 - PSHx: 17:15 Appendectomy; jl7 - Immunization history:: Client reports having NOT received the Covid vaccine. Last tetanus immunization: unknown. - Social history:: Smoking status: Patient reports use of chewing tobacco. ROS: 17:35 Constitutional: Negative for body aches, chills, fever, poor PO intake. cp 17:35 Eyes: Positive for foreign body sensation, pain, of the right eye, Negative for cp discharge, matting, vision loss. 17:35 ENT: Negative for drainage from ear(s), ear pain, sore throat, difficulty swallowing, difficulty handling secretions. 17:35 Cardiovascular: Negative for chest pain, palpitations. 17:35 Respiratory: Negative for cough, shortness of breath, wheezing. 17:35 Abdomen/GI: Negative for abdominal pain, nausea, vomiting, and diarrhea. 17:35 Skin: Negative for cellulitis, rash. 17:35 Neuro: Negative for altered mental status, dizziness, headache, numbness, syncope, weakness. 17:35 All other systems are negative. Exam: 17:35 Constitutional: The patient appears in no acute distress, alert, awake, non-toxic, well cp developed, well nourished. 17:35 Head/Face: Normocephalic, atraumatic. cp 17:35 Eyes: Periorbital structures: appear normal, Pupils: equal, round, and reactive to light and accomodation, Extraocular movements: intact throughout, Conjunctiva: mild erythema noted right eye, superficial abrasions noted lower conjunctiva. Corneas: abrasion, is not appreciated, foreign body, is not appreciated, a fluorescein strip employed to appreciate the findings, Anterior chamber: normal, Lids and lashes: appear normal, bilaterally. 17:35 ENT: External ear(s): are unremarkable, Nose: is normal, Mouth: Lips: moist, Oral mucosa: pink and intact, moist, Posterior pharynx: Airway: no evidence of obstruction, patent. 17:35 Neck: ROM/movement: is normal, is supple, without pain, no range of motions limitations. 17:35 Chest/axilla: Inspection: normal. 17:35 Cardiovascular: Rate: normal. 17:35 Respiratory: the patient does not display signs of respiratory distress, Respirations: normal, no use of accessory muscles, no retractions, labored breathing, is not present. 17:35 Abdomen/GI: Inspection: obese 17:35 Skin: no rash present. Vital Signs: 17:14 BP 160 / 110; Pulse 70; Resp 17; Temp 98.7; Pulse Ox 97% ; Weight 163.29 kg; Height 6 jl7 ft. 4 in. (193.04 cm); Pain 3/10; 19:03 BP 144 / 112; Pulse 72; Resp 15; Pulse Ox 98% ; jl7 17:14 Body Mass Index 43.82 (163.29 kg, 193.04 cm) jl7 MDM: 17:17 Patient medically screened. cp 17:30 Differential diagnosis: Corneal abrasion of right eye. Foreign body in right eye. cp Infectious conjunctivitis in right eye. 18:40 Data reviewed: vital signs, nurses notes. cp 18:40 Counseling: I had a detailed discussion with the patient and/or guardian regarding: the cp historical points, exam findings, and any diagnostic results supporting the discharge/admit diagnosis, the need for outpatient follow up, an opthalmologist, to return to the emergency department if symptoms worsen or persist or if there are any questions or concerns that arise at home. 18:40 Response to treatment: the patient's symptoms have mildly improved after treatment, and cp as a result, I will discharge patient. 06/10 17:20 Order name: Eye Tray; Complete Time: 17:24 cp 06/10 17:20 Order name: Fluoresene Opth strip; Complete Time: 17:24 cp 06/10 17:20 Order name: Visual Acuity; Complete Time: 18:39 cp Administered Medications: 18:00 Drug: Tetracaine Drops 0.5 % 1 drops {Note: administered by FADY Mckoy.} Route: jl7 Ophthalmic; Site: right eye; 18:50 Drug: Gentamicin Drops 0.3 % 1 drops Route: Ophthalmic; Site: right eye; jl7 18:50 Drug: Ibuprofen 800 mg Route: PO; jl7 19:03 Not Given (Pt dischargedd): Tetanus-Diphtheria Toxoid Adult 0.5 ml IM once; Provide jl7 Vaccine Information Statement (VIS). Disposition: 06/11 16:18 Co-signature as Attending Physician, Andrei Roberts DO I was immediately available onsite ms3 in the emergency department for consultation in the care of the patient. Disposition Summary: 06/10/22 18:40 Discharge Ordered Location: Home cp Problem: new cp Symptoms: have improved cp Condition: Stable cp Diagnosis - Injury of conjunctiva and corneal abrasion without foreign body, right eye, initial cp encounter Followup: cp - With: Indigo Whitt MD - When: 1 - 2 days - Reason: Recheck today's complaints Discharge Instructions: - Discharge Summary Sheet cp - Corneal Abrasion cp Forms: - Medication Reconciliation Form cp - Thank You Letter cp - Antibiotic Education cp - Prescription Opioid Use cp Prescriptions: - Gentamicin 0.3 % Ophthalmic Drops - instill 1 drop by OPHTHALMIC route every 4 hours for 7 days; 1 bottle; Refills: cp 0, Product Selection Permitted Signatures: Gino Jeffries PA PA cp Leal, Jahala, RN RN Andrei Vargas DO DO ms3 Corrections: (The following items were deleted from the chart) 06/10 17:16 17:15 PSHx: None; jl7 jl7 06/11 17:21 06/10 18:00 visual acuity testing OD is 20/25 and OS is 20/20. cp cp
[2022-06-10] MEDS ORDERED: GENTAMICIN 0.3% OPTH DROP 5ML ONE (18:58)
[2022-06-10] MEDS ORDERED: IBUPROFEN 400 MG TAB ONE (18:58)
[2022-06-10 19:36] VITALS: TEMP 98.7
[2022-06-10 19:37] VITALS: BP 144/112; O2SAT 98
== END 2022-06-10 19:04 | disposition home or self-care (01) ==
LOC: ER 17:05
DX: S05.01XA Injury of conjunctiva and corneal abrasion without foreign body, right eye, initial encounter (principal)
CPT/HCPCS: 99283

== ENCOUNTER 2023-02-22 15:24 | Emergency (ER) | payer SELFPAY ==
--- OUTSIDE RECORDS SUMMARY | 2023-02-22 15:28 | XMS REPORT | Continuity of Care Document ---
:1995 Author Organization [facility] t Address [address] [place] [address] Care Team Providers Name Role Phone PCP, PATIENT DOES NOT HAVE A Primary Care Physician Unavaila TONYA Chapman Attending Clinician Unavailable TONYA REA Attending Clinician Unavailable Lab, Adc Fam Pob I Attending Clinician Unavailable Nayely Kim Attending Clinician Doctor Unassigned, Manuel Garcia Ii Attending Clinician Unavailable Payers Payer Name Policy Type Policy Number Effective Date Expiration Date Valerie CARMONA COMM [id number] 2018 [facility] 00:00:00 Problems Condition Condition Condition Status Onset Resolution Last Treating Co mments Source Name Details Category Date Date Treatment Clinician Date Right Right Disease Active 20160 [facility] wrist pain wrist pain 4-18 it y of 00:00: [place] 00 [facility] Morbid Morbid Disease Active 2006-06 [facility] obesity obesity 0-10 ity of 00:00: [place] 00 Medical Branch HLD HLD Disease Active 2006-06 Overview: [facility] [place] [facility]i (hyperlipi 0-10 ICD10 it y of demia) demia) 00:00: Diagnosis [place] 00 Term Medical Treating [employer] [place] Branch Utility Family Family Disease Active 2006-06 [facility] history of history of 0-10 it y of diabetes diabetes 00:00: [place] mellitus mellitus 00 Medica l Branch Other Other Disease Active 2006-06 Overview: [facility] [place] [facility] 0-10 Obesity; ity of problem problem 00:00: HTN [place] within the within the 00 Me dical family family Branch Family Family Disease Active 2007-1 Overview: [facility] s history of history of 0-10 ICD10 it y of malignant malignant 00:00: Diagnosis [place] neoplasm neoplasm 00 Term Medica l Treating [employer] [place] Branch Utility Stage 3 Stage 3 Problem [...] Date Date Clinician NO KNOWN Drug Active [facility] ALLERGIE Class ity of S [facility] Social History Social Habit Start Date Stop Date Quantity Comments Source Exposure to Yes [facility] SARS-CoV-2 (event) Medica l Branch Sex Assigned At [facility] Branch Alcohol intake 2018-09-23 2018-09-23 [facility] 00:00:00 00:00:00 Medical Branch Smoking Status Start Date Stop Date Source Never smoker [facility] Medications Ordered Filled Start Stop [...] by mouth ity of capsule 00:00: every [place] 00 morning. Medical Branch ADDERALL XR Yes 30mg Take 30 mg [facility] 30 mg 24 hr 3-31 by mouth ity of capsule 00:00: every [place] 00 morning. Medical Branch hydrochloro Yes 12.5mg [...] Yes Nolvia 1 tablet Common Besylate Besylate [place] [facility] Gabapentin Gabapentin Yes Nolvia 1 capsule Common [place] [facility] Doxazosin Doxazosin Yes Nolvia 1 tablet Common Mesylate Mesylate [place] [facility] Metoprolol Metoprolol Yes Nolvia 1 tablet Common Tartrate Tartrate [place] with food S pirit - [facility] Melatonin Melatonin Yes Nolvia 1 tablet Common [place] at bedtime Spirit as needed - [facility] with food [facility] Tylenol # 3 Tylenol # 3 Yes Nolvia one tab Common [place] [facility] Procedures This patient has no known procedures. Encounters Start End Encounter Admission Attending Care Care Encounter Source Date/Time Date/Time Type Type Clinicians Facility Department ID 2022-02-27 2022-02-27 Outpatient R TONYA REA [facility] [id number] Univers 15:30:00 15:30:00 TONYA REA ity [facility] 2020-01-08 2020-01-08 Outpatient R [facility] [id number] Univers 14:40:00 14:40:00 ity [facility] 2020-01-08 2020-01-08 Laboratory Lab, Adc Fam Pob I [facility] [id number] Univers 14:15:02 14:35:02 Only Nayely Arreaga [facility] [id number] ity of [place] [id number] [place] as Kofi [id number] [address] 2020-01-08 2020-01-08 Letter Doctor CIARRA [id number] [place] [address] 00:00:00 00:00:00 (Out) Unassigned, BRANT [id number] ity of Manuel Garcia Ii [facility] [id number] [place] as [id number] [address] 2019-04-08 2019-04-08 Outpatient Messi Newman [id number] Common 13:00:00 13:00:00 t [facility] Family Medicine [facility] 2018-03-12 2018-03-12 Outpatient Messi Newman [id number] Common 10:00:00 10:00:00 [facility] Results This patient has no known results.
[2023-02-22 16:47] LABS: Absolute Lymphocytes (CBC) 2.2 K/uL (0.7-4.9); Hematocrit 43.7 % (39.6-49.0); Lymphocytes % 17.6 % (15.3-44.8); Platelets 309 thou/uL (152-406)
[2023-02-22 16:58] LABS: Specific Gravity > 1.030 (1.005-1.030); Urine Bacteria None Seen /HPF (<20); Urine Bilirubin NEGATIVE (Negative); Urine Blood Negative (Negative); Urine Clarity Clear (Clear); Urine Color Yellow (Yellow); Urine Glucose NEGATIVE (Negative); Urine Mucus Slight /HPF (None Seen); Urine Protein TRACE (Negative); Urine RBC <5 /HPF (None Seen); Urine Urobilinogen Normal (Normal)
[2023-02-22 17:02] LABS: Potassium 4.1 mEq/L (3.5-5.1)
[2023-02-22] MEDS ORDERED: KETOROLAC 30 MG/ML INJ ONE (17:53)
[2023-02-22] MEDS ORDERED: dexAMETHasone 10 MG/ML VIAL ONE (17:53)
--- NOTE | 2023-02-22 17:58 | ER ---
Nurse's Notes [facility] Name: Riki Amado Age: 27 yrs Sex: Male : 1995 Arrival Date: 02/22/2023 Time: 15:24 Bed 19 Private MD: Diagnosis: Diarrhea, unspecified;Low back pain Presentation: 02/22 15:39 Chief complaint: Patient states: "Today, I started having a pain in my back while mb9 jumping out of a fork lift. I also been having diarrhea since last Friday and a headache for the past 2 days". Coronavirus screen: Vaccine status: Patient reports receiving the 2nd dose of the covid vaccine. Ebola Screen: No symptoms or risks identified at this time. Initial Sepsis Screen: Does the patient meet any 2 criteria? No. Patient's initial sepsis screen is negative. Does the patient have a suspected source of infection? No. Patient's initial sepsis screen is negative. Risk Assessment: Do you want to hurt yourself or someone else? Patient reports no desire to harm self or others. Onset of symptoms was February 22, 2023. 15:39 Method Of Arrival: Ambulatory 9 15:39 Acuity: DION 3 mb9 Triage Assessment: 15:41 General: Appears in no apparent distress. Behavior is calm, cooperative, appropriate mb9 for age. Pain: Complains of pain in back Pain does not radiate. Is continuous. EENT: No signs and/or symptoms were reported regarding the EENT system. Neuro: [place] Torre Agitation-Sedation Scale (RASS): 0 - Alert and Calm Level of Consciousness is awake, alert, obeys commands, Oriented to person, place, time, situation, Appropriate for age. Cardiovascular: Patient's skin is warm and dry. Respiratory: Airway is patent Respiratory effort is even, unlabored, Respiratory pattern is regular, symmetrical. GI: Reports diarrhea. : No signs and/or symptoms were reported regarding the genitourinary system. Derm: Skin is pink, warm \\T\\ dry. Musculoskeletal: Range of motion: intact in all extremities. Historical: - Allergies: 15:41 No Known Allergies; mb9 - Home Meds: 15:41 None [Active]; mb9 - PMHx: 15:41 Hypertension; RENAL FAILURE; mb9 - PSHx: 15:41 Appendectomy; mb9 - Immunization history:: Adult Immunizations up to date. - Social history:: Smoking status: Patient reports use of chewing tobacco. Screenin:39 [facility] ED Fall Risk Assessment (Adult) History of falling in the last 3 months, db including since admission No falls in past 3 months (0 pts) Confusion or Disorientation No (0 pts) Intoxicated or Sedated No (0 pts) Impaired Gait No (0 pts) Mobility Assist Device Used No (0 pt) Altered Elimination No (0 pt) Score/Fall Risk Level 0 - 2 = Low Risk Oriented to surroundings, Maintained a safe environment. Abuse screen: Denies threats or abuse. Denies injuries from another. Nutritional screening: No deficits noted. Tuberculosis screening: No symptoms or risk factors identified. Assessment: 16:20 Reassessment: Patient appears in no apparent distress at this time. Patient and/or db family updated on plan of care and expected duration. Pain level reassessed. Patient is alert, oriented x 3, equal unlabored respirations, skin warm/dry/pink. General: Appears in no apparent distress. comfortable, Behavior is calm, cooperative. Neuro: Level of Consciousness is awake, alert, obeys commands, Oriented to person, place, time, situation. Respiratory: Airway is patent Respiratory effort is even, unlabored, Respiratory pattern is regular, symmetrical. 17:55 Reassessment: Patient appears in no apparent distress at this time. Patient and/or db family updated on plan of care and expected duration. Pain level reassessed. Patient is alert, oriented x 3, equal unlabored respirations, skin warm/dry/pink. Patient states feeling better. Vital Signs: 15:39 BP 148 / 79; Pulse 80; Resp 18; Temp 97.9; Pulse Ox 100% on R/A; Weight 161.03 kg; mb9 Height 6 ft. 4 in. ; Pain 6/10; 16:22 BP 138 / 96; Pulse 70; Resp 16; Pulse Ox 100% on R/A; db 17:37 BP 136 / 81; Pulse 65; Resp 16; Pulse Ox 95% ; db 15:39 Body Mass Index 43.21 (161.03 kg, 193.04 cm) mb9 15:39 Pain Scale: Adult mb9 ED Course: 15:28 Patient arrived in ED. ts1 15:31 Roxana Marshall FNP-C is PHCP. kb 15:31 Rittger, Maxx, MD is Attending Physician. kb 15:40 Triage completed. mb9 15:41 Arm band placed on. mb9 16:20 Inserted saline lock: 20 gauge in right antecubital area, using aseptic technique. db Blood collected. 16:36 Nery Oliver, RN is Primary Nurse. db 16:39 Patient has correct armband on for positive identification. Bed in low position. Call db light in reach. Side rails up X 1. Pulse ox on. NIBP on. 18:10 Provided Education on: discharge. db 18:10 No provider procedures requiring assistance completed. IV discontinued, intact, db bleeding controlled, No redness/swelling at site. Administered Medications: 17:45 Drug: Decadron - Dexamethasone IVP 10 mg Route: IVP; Site: right antecubital; db 18:11 Follow up: Response: No adverse reaction db 17:45 Drug: Ketorolac IVP 15 mg Route: IVP; Site: right antecubital; db 18:11 Follow up: Response: No adverse reaction db Medication: 15:42 VIS not applicable for this client. mb9 Outcome: 17:58 Discharge ordered by MD. kb 18:10 Discharged to home ambulatory, with family. db 18:10 Condition: stable 18:10 Discharge instructions given to patient, family, Instructed on discharge instructions, follow up and referral plans. Prescriptions given X 1. 18:12 Patient left the ED. db Signatures: Roxana Marshall, [employer]-C [employer]ALE [employer] RETAIL MERCHANT-Ckb Nery Oliver, RN RN Felipa Woodard RN RN mb9 Rocio Aguilera PAS PAS ts1 Corrections: (The following items were deleted from the chart) 15:42 15:39 Acuity: DION 4 mb9 mb9
--- NOTE | 2023-02-22 17:59 | EDPHYS ---
Physician Documentation [facility] Name: Riki Amado Age: 27 yrs Sex: Male : 1995 Arrival Date: 02/22/2023 Time: 15:24 Bed 19 Private MD: ED Physician Maxx Cardona HPI: 02/22 18:18 This 27 yrs old Male presents to ER via Ambulatory with complaints of Back kb Pain, Diarrhea. 18:18 The patient presents with pain that is acute. The symptoms are located in the lumbar kb area. The pain does not radiate. The problem was sustained jumping out of forklift. Onset: The symptoms/episode began/occurred today. Modifying factors: The patient symptoms are alleviated by nothing, the patient symptoms are aggravated by any movement. Associated signs and symptoms: The patient has no apparent associated signs or symptoms. Severity of symptoms: At their worst the symptoms were mild, moderate, in the emergency department the symptoms are unchanged. The patient has not experienced similar symptoms in the past. The patient has not recently seen a physician. Pt reports low back pain that started after jumping out of a forklift today. Also reports headache for 2 days and diarrhea for 5 days. . Historical: - Allergies: 15:41 No Known Allergies; mb9 - Home Meds: 15:41 None [Active]; mb9 - PMHx: 15:41 Hypertension; RENAL FAILURE; mb9 - PSHx: 15:41 Appendectomy; mb9 - Immunization history:: Adult Immunizations up to date. - Social history:: Smoking status: Patient reports use of chewing tobacco. ROS: 18:18 Constitutional: Negative for fever, chills, and weight loss. kb 18:18 Abdomen/GI: Positive for diarrhea. 18:18 Back: Positive for pain at rest, pain with movement, of the lumbar area. 18:18 Neuro: Positive for headache. kb 18:18 All other systems are negative. Exam: 18:18 Constitutional: This is a well developed, well nourished patient who is awake, alert, kb and in no acute distress. Head/Face: Normocephalic, atraumatic. ENT: Moist Mucous membranes Cardiovascular: Regular rate and rhythm with a normal S1 and S2. No gallops, murmurs, or rubs. No pulse deficits. Respiratory: Respirations even and unlabored. No increased work of breathing. Talking in full sentences Abdomen/GI: Soft, non-tender. No distention Back: No spinal tenderness. No costovertebral tenderness. Full range of motion. Skin: Warm, dry with normal turgor. Normal color. MS/ Extremity: Pulses equal, no cyanosis. Neurovascular intact. Full, normal range of motion. Neuro: Awake and alert, GCS 15, oriented to person, place, time, and situation. Moves all extremities. Normal gait. Vital Signs: 15:39 BP 148 / 79; Pulse 80; Resp 18; Temp 97.9; Pulse Ox 100% on R/A; Weight 161.03 kg; mb9 Height 6 ft. 4 in. ; Pain 6/10; 16:22 BP 138 / 96; Pulse 70; Resp 16; Pulse Ox 100% on R/A; db 17:37 BP 136 / 81; Pulse 65; Resp 16; Pulse Ox 95% ; db 15:39 Body Mass Index 43.21 (161.03 kg, 193.04 cm) mb9 15:39 Pain Scale: Adult mb9 MDM: 15:31 Patient medically screened. kb 18:20 Differential diagnosis: arthritis, strain, fracture, sciatica, contusion, Herniated kb disc UTI. Data reviewed: vital signs, nurses notes. Counseling: I had a detailed discussion with the patient and/or guardian regarding the historical points, exam findings, and any diagnostic results supporting the discharge/admit diagnosis, lab results, the need for outpatient follow up, a family practitioner, to return to the emergency department if symptoms worsen or persist or if there are any questions or concerns that arise at home. 02/22 15:45 Order name: CBC with Diff; Complete Time: 17:07 kb 02/22 15:45 Order name: Basic Metabolic Panel; Complete Time: 17:07 kb 02/22 15:45 Order name: COVID-19 SARS RT PCR; Complete Time: 17:29 kb 02/22 15:45 Order name: Flu; Complete Time: 17:23 kb 02/22 15:45 Order name: Urinalysis w/ reflexes; Complete Time: 17:07 kb 02/22 15:45 Order name: IV Start; Complete Time: 16:37 kb 02/22 15:45 Order name: IV Start; Complete Time: 16:37 kb Administered Medications: 17:45 Drug: Decadron - Dexamethasone IVP 10 mg Route: IVP; Site: right antecubital; db 18:11 Follow up: Response: No adverse reaction db 17:45 Drug: Ketorolac IVP 15 mg Route: IVP; Site: right antecubital; db 18:11 Follow up: Response: No adverse reaction db Disposition Summary: 02/22/23 17:58 Discharge Ordered Location: Home kb Condition: Stable kb Diagnosis - Diarrhea, unspecified kb - Low back pain kb Followup: kb - With: Emergency Department - When: As needed - Reason: Worsening of condition Followup: kb - With: Private Physician - When: 2 - 3 days - Reason: Recheck today's complaints, Continuance of care, Re-evaluation by your physician Discharge Instructions: - Discharge Summary Sheet kb - Musculoskeletal Pain kb - Diarrhea, Adult, [id number] kb Forms: - Medication Reconciliation Form kb - Thank You Letter kb - Antibiotic Education kb - Prescription Opioid Use kb - Patient Portal Instructions kb - Leadership Thank You Letter kb Prescriptions: - Ibuprofen 800 mg Oral Tablet - take 1 tablet by ORAL route every 8 hours As needed take with food; 30 tablet; kb Refills: 0, Product Selection Permitted - orphenadrine citrate 100 mg Oral Tablet Sustained Release - take 1 tablet by ORAL route 2 times per day As needed; 20 tablet; Refills: 0, kb Product Selection Permitted Signatures: Dispatcher [employer] Roxana Wynn, CHRISTIANC JENS-Nery Ponce, RN RN Felipa Woodard RN RN mb9
[2023-02-22 19:35] VITALS: TEMP 97.9
[2023-02-22 19:46] VITALS: BP 136/81; O2SAT 95
== END 2023-02-22 18:12 | disposition home or self-care (01) ==
LOC: ER 15:24
DX: R19.7 Diarrhea, unspecified (principal); M54.50 Low back pain, unspecified; Z20.822 Contact with and (suspected) exposure to COVID-19
CPT/HCPCS: 36415; 80048; 81001; 85025; 87635; 87804; 96374; 96375; 99284; J1100

== ENCOUNTER 2023-12-27 18:51 | Emergency (ER) | payer SELFPAY ==
[2023-12-27] MEDS ORDERED: ALBUTEROL 2.5 MG/3 ML NEB SOL ONE (19:58)
--- NOTE | 2023-12-27 20:24 | RAD REPORT ---
EXAM DESCRIPTION: RAD - Chest Single View - 12/27/2023 8:11 pm CLINICAL HISTORY: Chest pain;Dyspnea Chest pain. COMPARISON: <Comparisons> FINDINGS: Portable technique limits examination quality. The lungs are grossly clear. The heart is normal in size. No displaced fractures. IMPRESSION: No acute intrathoracic process suspected.
[2023-12-27 20:42] LABS: SARS-CoV-2 Antigen CONTROL BLUE LINE VIS/BG OK
[2023-12-27 20:43] LABS: SARS-CoV-2 Antigen Rapid Res Positive (Negative)
--- NOTE | 2023-12-27 21:14 | ER ---
Nurse's Notes [facility] Name: Riki Amado Age: 27 yrs Sex: Male : 1995 Arrival Date: 12/27/2023 Time: 18:51 Bed 18 Private MD: Diagnosis: SARS-associated coronavirus as the cause of diseases classified elsewhere;Acute tonsillitis, unspecified Presentation: 12/26 19:16 Chief complaint: Patient states: Pt states he was given steroid injection for rash on tl4 am. Pt states rash is gone, but now feels like he has swelling in his throat and it is intermittently difficult to breathe. Coronavirus screen: At this time, the client does not indicate any symptoms associated with coronavirus-19. Ebola Screen: No symptoms or risks identified at this time. Initial Sepsis Screen: Does the patient meet any 2 criteria? No. Patient's initial sepsis screen is negative. Does the patient have a suspected source of infection? No. Patient's initial sepsis screen is negative. Risk Assessment: Do you want to hurt yourself or someone else? Patient reports no desire to harm self or others. Onset of symptoms was December 25, 2023. 19:16 Method Of Arrival: Ambulatory tl4 19:16 Acuity: DION 3 tl4 Triage Assessment: 19:20 General: Appears in no apparent distress. Behavior is calm, cooperative. Pain: tl4 Complains of pain in neck. EENT: Reports swelling in throat. Neuro: Level of Consciousness is awake, alert, obeys commands, Oriented to person, place, time, situation, Moves all extremities. Full function Gait is steady, Speech is normal, Facial symmetry appears normal. Cardiovascular: Capillary refill < 3 seconds Patient's skin is warm and dry. Respiratory: Reports shortness of breath Airway is patent Respiratory effort is even, unlabored, Respiratory pattern is regular, symmetrical, Breath sounds are clear bilaterally. Onset: The symptoms/episode began/occurred gradually, the patient has mild shortness of breath. GI: No signs and/or symptoms were reported involving the gastrointestinal system. : No signs and/or symptoms were reported regarding the genitourinary system. Derm: No signs and/or symptoms reported regarding the dermatologic system. Musculoskeletal: No signs and/or symptoms reported regarding the musculoskeletal system. Historical: - Allergies: 19:20 No Known Allergies; tl4 - Home Meds: 19:20 None [Active]; tl4 - PMHx: 19:20 Hypertension; RENAL FAILURE; tl4 - PSHx: 19:20 Appendectomy; tl4 - Immunization history:: Adult Immunizations unknown. - Infectious Disease History:: Denies. - Social history:: Smoking status: Patient reports use of chewing tobacco. Screenin:08 Abuse screen: Denies threats or abuse. Denies injuries from another. Nutritional pc2 screening: No deficits noted. Tuberculosis screening: No symptoms or risk factors identified. 20:10 [facility] ED Fall Risk Assessment (Adult) History of falling in the last 3 months, pc2 including since admission No falls in past 3 months (0 pts) Confusion or Disorientation No (0 pts) Intoxicated or Sedated No (0 pts) Impaired Gait No (0 pts) Mobility Assist Device Used No (0 pt) Altered Elimination No (0 pt) Score/Fall Risk Level 0 - 2 = Low Risk Oriented to surroundings, Hourly rounding (assess needs \T\ fall precautionary measures) done. Assessment: 20:04 General: Appears in no apparent distress. comfortable, Behavior is calm, cooperative, pc2 Reports feeling ill for 1-2 days. Pain: Denies pain. Neuro: Level of Consciousness is awake, alert, Oriented to person, place, time, situation. Cardiovascular: Patient's skin is warm and dry. Rhythm is regular. Respiratory: Reports shortness of breath on exertion cough that is non-productive, Airway is patent Respiratory effort is even, unlabored, Respiratory pattern is regular, symmetrical. GI: Abdomen is round non-distended. : No signs and/or symptoms were reported regarding the genitourinary system. EENT: No signs and/or symptoms were reported regarding the EENT system. Derm: No signs and/or symptoms reported regarding the dermatologic system. Musculoskeletal: No signs and/or symptoms reported regarding the musculoskeletal system. Vital Signs: 19:16 BP 146 / 94; Pulse 72; Resp 16; Temp 99(O); Pulse Ox 98% on R/A; Weight 167.83 kg; tl4 Height 6 ft. 4 in. ; Pain 0/10; 20:30 BP 132 / 88; Pulse 63; Resp 16; Pulse Ox 100% on R/A; pc2 19:16 Body Mass Index 45.04 (167.83 kg, 193.04 cm) tl4 19:16 Pain Scale: Adult tl4 ED Course: 18:53 Patient arrived in ED. im 19:10 Sol Herring PA-C is PHCP. sb4 19:10 Gino Horvath MD is Attending Physician. sb4 19:20 Triage completed. tl4 19:21 Arm band placed on right wrist. tl4 20:13 Chest Single View XRAY In Process Unspecified. EDMS 20:13 Flu Sent. pc2 20:13 SARS RAPID Sent. pc2 20:13 Strep Sent. pc2 21:21 Patient has correct armband on for positive identification. Bed in low position. Call pc2 light in reach. Side rails up X2. Provided Education on: medication usage. 21:21 No provider procedures requiring assistance completed. pc2 21:24 Patient did not have IV access during this emergency room visit. pc2 Administered Medications: 20:13 Drug: Albuterol Inhalation 2.5 mg Inhalation once Route: Inhalation; pc2 Medication: 20:11 VIS not applicable for this client. pc2 Outcome: 21:13 Discharge ordered by . sb4 21:20 Discharged to home ambulatory, with family, pc2 21:20 Condition: stable 21:20 Discharge instructions given to patient, family, Instructed on discharge instructions, follow up and referral plans. medication usage, Demonstrated understanding of instructions, follow-up care, medications, Prescriptions given X 2, 21:25 Patient left the ED. pc2 Signatures: Dispatcher [employer] EDNY Sol Herring PA-C PA-C sb4 Nicole Bernstein David Gonsales RN RN tl4 Karin Townsend, RN RN pc2
--- NOTE | 2023-12-27 21:14 | EDPHYS ---
Physician Documentation [facility] Name: Riki Amado Age: 27 yrs Sex: Male : 1995 Arrival Date: 12/27/2023 Time: 18:51 Bed 18 Private MD: ED Physician Gino Horvath HPI: 12/26 20:05 This 27 yrs old Male presents to ER via Ambulatory with complaints of sb4 Shortness Of Breath, Neck Swelling, Sore Throat. 20:05 Patient states that yesterday, he woke up with shortness of breath and a rash all over sb4 his body. He went to [facility] ED where he was given a steroid shot and discharged with a Medrol Dosepak. He states that the steroids made him feel dizzy so he has not taken any more. He states that this evening, he started to feel short of breath again, like his throat was swollen. Historical: - Allergies: 19:20 No Known Allergies; tl4 - Home Meds: 19:20 None [Active]; tl4 - PMHx: 19:20 Hypertension; RENAL FAILURE; tl4 - PSHx: 19:20 Appendectomy; tl4 - Immunization history:: Adult Immunizations unknown. - Infectious Disease History:: Denies. - Social history:: Smoking status: Patient reports use of chewing tobacco. ROS: 20:06 Constitutional: Negative for fever, chills, and weight loss, sb4 20:06 ENT: Positive for sore throat, 20:06 Respiratory: Positive for shortness of breath, 20:06 All other systems are negative, Exam: 20:06 Head/Face: Normocephalic, atraumatic. Eyes: Extra-ocular motions intact. Periorbital sb4 areas with no swelling, redness, or edema. Cardiovascular: Regular rate and rhythm with a normal S1 and S2. Respiratory: Lungs have equal breath sounds bilaterally, clear to auscultation and percussion. No rales, rhonchi or wheezes noted. No increased work of breathing, no retractions or nasal flaring. Abdomen/GI: Soft, non-tender, no distension. Skin: Warm, dry with normal turgor. Normal color with no rashes, no lesions, and no evidence of cellulitis. MS/ Extremity: Pulses equal, no cyanosis. Neurovascular intact. Full, normal range of motion. 20:06 Constitutional: The patient appears in no acute distress, alert, awake, obese, 20:06 ENT: Posterior pharynx: Tonsils: enlarged on the left, with exudate, swelling, erythema, Vital Signs: 19:16 BP 146 / 94; Pulse 72; Resp 16; Temp 99(O); Pulse Ox 98% on R/A; Weight 167.83 kg; tl4 Height 6 ft. 4 in. ; Pain 0/10; 20:30 BP 132 / 88; Pulse 63; Resp 16; Pulse Ox 100% on R/A; pc2 19:16 Body Mass Index 45.04 (167.83 kg, 193.04 cm) tl4 19:16 Pain Scale: Adult tl4 MDM: 19:22 Patient medically screened. sb4 20:45 Data reviewed: vital signs, nurses notes, lab test result(s), radiologic studies, and sb4 as a result, I will discharge patient. Care significantly affected by the following chronic conditions: Hypertension, Obesity. Counseling: I had a detailed discussion with the patient and/or guardian regarding the historical points, exam findings, and any diagnostic results supporting the discharge/admit diagnosis, lab results, radiology results, to return to the emergency department if symptoms worsen or persist or if there are any questions or concerns that arise at home. 20:54 Antibiotic administration: The patient is discharged and will get outpatient sb4 antibiotics, Amoxicillin. Data interpreted: Pulse oximetry: on room air is 98 %. Interpretation: normal. Plan: O2 by NC applied. The patient's pulmonary embolism risk score was calculated as follows: suspected deep vein thrombosis (3 Pts) Total Score: 0-2 points. This patient was found to be at low risk for a pulmonary embolism by using the Well's assessment criteria. Immunization status:. Historians other than the Patient: Parent: mother. 12/26 19:47 Order name: Strep; Complete Time: 20:44 sb4 12/26 19:47 Order name: SARS RAPID; Complete Time: 20:44 sb4 12/26 19:47 Order name: Flu; Complete Time: 21:08 sb4 12/26 20:39 Order name: Throat Culture EDMS 12/26 19:47 Order name: Chest Single View XRAY; Complete Time: 20:27 sb4 Administered Medications: 20:13 Drug: Albuterol Inhalation 2.5 mg Inhalation once Route: Inhalation; pc2 Disposition: 12/27 04:17 Co-signature as Attending Physician, Gino Horvath MD I agree with the assessment and veronique plan of care. Disposition Summary: 12/27/23 21:13 Discharge Ordered Notes: Location: Home sb4 Problem: new sb4 Symptoms: have improved sb4 Condition: Stable sb4 Diagnosis - SARS-associated coronavirus as the cause of diseases classified elsewhere sb4 - Acute tonsillitis, unspecified sb4 Followup: sb4 - With: Emergency Department - When: As needed - Reason: Trouble breathing, Worsening of condition Discharge Instructions: - Discharge Summary Sheet sb4 - Tonsillitis, Oduk-dg-Fvam sb4 - 10 Things You Can Do to Manage Your COVID-19 Symptoms at Home - [facility] (01/05/2021) sb4 Forms: - Work release form sb4 - Antibiotic Education sb4 - Patient Portal Instructions sb4 - Leadership Thank You Letter sb4 Prescriptions: - albuterol sulfate 90 mcg/actuation Inhalation HFA Aerosol Inhaler - inhale 2 puff INHALATION route every 4 hours as needed for shortness of breath sb4 or wheezing; 1 Applicator; Refills: 0, Product Selection Permitted - Amoxicillin 875 mg Oral Tablet - take 1 tablet ORAL route every 12 hours for 10 days; 20 tablet; Refills: 0, sb4 Product Selection Permitted Signatures: Dispatcher [employer] EDGino Cardenas MD MD cha Brown, Sophia, PA-C PA-C sb4 David Gonsales RN RN tl4 Karin Townsend, RN RN pc2 Corrections: (The following items were deleted from the chart) 12/26 19:48 19:48 Group A Streptococcus Rapid Sc+BA.LAB.BRZ ordered. EDMS EDMS 19:48 19:48 SARS-COV-2 Antigen Rapid+I.LAB.BRZ ordered. EDMS EDMS 19:48 19:48 Influenza Screen (A \T\ B)+BA.LAB.BRZ ordered. EDMS EDMS 19:48 19:48 Chest Single View+RAD.RAD.BRZ ordered. EDMS EDMS 20:06 20:05 This 27 yrs old Male presents to ER via Ambulatory with complaints of sb4 Shortness Of Breath, Chest Pain, Neck Swelling, Sore Throat. sb4
[2023-12-27 21:44] VITALS: BP 132/88; TEMP 99; O2SAT 100
== END 2023-12-27 21:25 | disposition home or self-care (01) ==
LOC: ER 18:51
DX: U07.1 COVID-19 (principal); J03.90 Acute tonsillitis, unspecified
CPT/HCPCS: 36415; 71045; 87070; 87081; 87804; 87811; 99284; J7613